=== PATIENT | female | born 1945 | race Caucasian/White ===

== ENCOUNTER 2020-12-12 08:41 | Emergency (ER) | payer OTHER, SELFPAY ==
[2020-12-12] VITALS (22 sets, daily range): BP systolic 142–189; BP diastolic 59–84; PULSE 47–66; RESP 13–24; TEMP 36.7–37.4; O2SAT 95–99
--- NOTE | 2020-12-12 08:30 | RT.EKG_ITS ---
APPROVED REPORT Exam: Resting ECG Reason for Exam: dizziness Patient Location: E HR:55 bpm ECG Measurements Heart Rate 55 AXIS MO 182 P -20 QRSd 94 QRS 28 QT 478 T 50 QTc 458 Conclusion Sinus bradycardia...rate< 60 Consider left ventricular hypertrophy...(S V1+R V5/V6) >3.25mV
--- NOTE | 2020-12-12 09:00 | DI.CT_ITS ---
Exam(s) CT BRAIN NECK CTA EXAM: CT BRAIN NECK CTA CLINICAL HISTORY: dizziness acute onset this am when awoke. TECHNIQUE: Imaging Protocol: Axial CT angiography was performed with multi-slice acquisition and mu lti-planar and/or 3D reconstructions. CONTRAST MATERIAL: Intravenous: Omnipaque 350 Contrast volume:85 mL COMPARISON: No exams were available for comparison FINDINGS: CT Head W/O and W: Ventricles and Extra axial spaces: Normal in size and morphology for the patient's age. Hemorrhage: None. Cerebral parenchyma: No acute territorial infarct. There are areas of decreased attenuation in the w mable matter most consistent with chronic microvascular ischemic disease. Midline shift: None. Brainstem/Cerebellum: Normal. Calvarium: Normal. Visualized Paranasal sinuses/Mastoids: Clear. Soft Tissues: Unremarkable. Enhancement: Unremarkable. CTA Neck W: Common Carotid: Right: No dissection, occlusion or significant stenosis. Mild atherosclerosis distally. Left: No dissection, occlusion or significant stenosis. Mild atherosclerosis distally. External Carotid: Right: No occlusion or significant stenosis. Left: No occlusion or significant stenosis. Internal Carotid: Right: No dissection, occlusion or significant stenosis. Left: No dissection, occlusion or significant stenosis. Vertebral Artery: Right: No dissection, occlusion or significant stenosis. Left: No dissection, occlusion or significant stenosis. There is a dominant left vertebral artery. Lung Apices: Normal. Bones: Age-appropriate degenerative changes. Soft Tissues: Normal. CTA Brain W: Internal Carotid Arteries: Petrous: Normal. Cavernous: Normal. Cerebral: Normal. Anterior Cerebral Arteries: Right: No aneurysm, occlusion or significant stenosis. Left: No aneurysm, occlusion or significant stenosis. Middle Cerebral Arteries: Right: No aneurysm, occlusion or significant stenosis. Left: No aneurysm, occlusion or significant stenosis. Posterior cerebral Arteries: Right: No aneurysm, occlusion or significant stenosis. Left: No aneurysm, occlusion or significant stenosis. Vertebral Arteries: Right: No aneurysm, occlusion or significant stenosis. Left: No aneurysm, occlusion or significant stenosis. Basilar Artery: No aneurysm, occlusion or significant stenosis. IMPRESSION: 1. No large vessel occlusion or significant stenosis in the [id number]. 2. No acute intracranial process. 3. No occlusion or significant stenosis on the CT examination of the neck. 4. Results of this exam have been verbally communicated with provider. RADIATION DOSE DELIVERED: 2,057.96mGy.cm Total DLP DATA REPOSITORY: All CT scans at this facility are submitted to the National Radiology Data Registry (NRDR) Dose Index Registry (DIR) with the [employer] (ACR). RADIATION OPTIMIZATION: All CT scans at this facility use at least one of these dose optimization te chniques: automated exposure control; mA and/or kV adjustment per patient size (includes targeted exa ms where dose is matched to clinical indication); or iterative reconstruction.
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
--- OUTSIDE RECORDS SUMMARY | 2020-12-12 09:32 | XMS_ITS | Continuity of Care Document ---
:1945 Author Organization [facility] Address [address] [place] [address] Care Team Providers Name Role Phone Jayleen [...] have a copy on file here at [facility]? No N [id number] 8:29pm Does patient have an Advanced Directive? No February 13, 2017 8:29pm Pt has a Living Will? No February 13, 2017 8:29pm Pt has a Power of Counter Help? No February 13, 2017 8:29pm Chief Complaint [...] Discharge/Departure Atte nding Date Date Provider Departed [facility] February 13February 13, 2017 [facility] Department 2016 8:00pm 9:00pm Functional Status No known functional status. Immunizations Immunization Name Date Given Type Tetanus Diphtheria Pertussis February 13, 2017 Administere d Payers Payer Name Policy Type Covered Covered Relationship Subscriber Sub scriber Id Alliance Party Alliance Party Id SELF PAY Personal Plan of Care [...] 2017 8:59pm Blood Pressure Diastolic 78 50-85 [facility]2016 8:59pm Body Mass Index n/a
--- OUTSIDE RECORDS SUMMARY | 2020-12-12 09:32 | XMS_ITS | Continuity of Care Document ---
:1945 Author Organization [facility] Address [address] [place] [address] Care Team Providers Name Role Phone Jayleen [...] have a copy on file here at [facility]? No N [id number] 8:29pm Does patient have an Advanced Directive? No February 13, 2017 8:29pm Pt has a Living Will? No February 13, 2017 8:29pm Pt has a Power of Editor Managing [employer]aper? No February 13, 2017 8:29pm Chief Complaint [...] Discharge/Departure Atte nding Date Date Provider Departed [facility] February 13February 13, 2017 Emergency Medical [...] 2017 8:59pm Blood Pressure Diastolic 78 50-85 [facility]2016 8:59pm Body Mass Index n/a
[2020-12-12] MEDS: Meclizine 25 MG TAB PO (09:33)
--- OUTSIDE RECORDS SUMMARY | 2020-12-12 09:33 | XMS_ITS | Encounter Summary ---
:1945 Author Care Team Providers Name Role Phone Jayleen Nash MD Primary Care Provider [phone] [facility] OTHER [phone] Giovani Schneider MD General Surgeon [phone] Reason for Visit shortness of breath Assessment and Plan 1. Pain in left knee Likely injured lateral meniscu s of left knee. Patient reports it has worsened over some time. Starting with b aseline xrays to determine how much underlying OA she might have. Patient is going to take Aleve on a scheduled basis for the next several weeks. ? XR, knee, 3 view 2. Hand wart With the patient's request, I froze her three warts with three freeze/thaw cycles of liquid nitrogen. She tolerated without issue. Greater than 50% of this 20 minute appoi ntment was spent in counseling. Discussion Note: None recorded.Patient educational handouts: No information available. Plan of Care Reminders Provider Appointments Awv 40 05/31/2021 Jayleen Montesinos rris 2:40PM MD Charity ? Return to on or around Baudilio Ortega, Office 10/13/2021 [facility] Lab None ? ? recorded. Referral None ? ? recorded. Procedures None ? ? recorded. Surgeries None ? ? recorded. Imaging XR, Knee, 12/07/2020 [facility] (Internal) Medications Name Start Date ? ? aspirin 81 mg tablet,delayed release ? Take 1 tablet every day by oral route in the morning. Flexeril 10 mg tablet ? Take 1 tablet 3 times a day by oral route as needed. metoprolol succinate ER 50 mg tablet,extended release 24 hr ? TAKE 1 TABLET DAILY omeprazole 40 mg capsule,delayed release ? TAKE 1 CAPSULE DAILY Pepcid 20 mg tablet ? TAKE ONE TABLET BY MOUTH EVERY DAY ProAir HFA 90 mcg/actuation aerosol inhaler ? Inhale 2 puffs every 4 hours by inhalation route. Zofran ODT 4 mg disintegrating tablet ? Take 1 tablet every 6 hours by oral route as needed. Notes: pt states takes 2 capsule s tumeric 720 mg mg daily in the AM. Bio complete 3 takes 4 daily., replenex extr a strength 3 daily. Medications Administered None recorded. Vitals Height Weight BMI Blood Pressure 5 ft 3.75 in 177 lbs 30.6 kg/m2 130/88 mm[Hg] Results Lab Results None recorded. Allergies Code Code System Name Reaction Severity Onset 20231105 RxNorm Motrin ? ? ? Notes: Animal Dander, Mold spore s, Pollens Problems Name Status Onset Date Source ? 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 Goiter Active ? History Non-toxic Nodular Goiter Active ? History Non-toxic Uninodular Goiter Active ? Hist ory Hypo-osmolality and or Hyponatremia Active ? History Obesity Active ? History Overweight Active ? History Alcohol Abuse Active ? History Obstructive Sleep Apnea Syndrome Active ? History Nervous System and Sense Organ Diseases Active ? History Essential Hypertension Active ? History Benign Essential Hypertension Active ? Hi story Allergic Rhinitis Active ? History Iliopsoas Abscess Active ? History Cystitis Active ? History Hypertrichosis Active ? History Localized, Primary Osteoarthritis of Active ? History the Wrist Osteoarthritis Active ? History Joint Pain Active ? History Osteomyelitis of Vertebra Active ? Histor y Osteoporosis Active ? History Sleep Apnea Active ? History Heart Murmur Active ? History Right Upper Quadrant Pain Active ? Histor y Large Liver Active ? History Nonspecific Tuberculin Test Reaction Active ? History Mantoux: Positive Active ? History History of Disorder Active ? History Osteoarthritis of Joint Right Ankle Active ? History Procedure by Method Active ? History Pain in Left Knee Active ? History Pain of Left Hip Joint Active ? History Notes: MRSA SCREEN NEGATIVE 01/03 Procedures Date Name Performed by ? 05/30/2019 Excision of Ganglion Cyst Information no t available 05/30/2019 Colonoscopy Information not avai lable Notes: colonoscopy normal; 02/05/2009 normal exam; 01/30/1999 normal exam 03/30/1977 Hysterectomy Information not avai lable 03/30/1957 Appendectomy Information not avai lable ? Orthopedic Surgery Information not avai lable Notes: Age 20 left great toe no metal 12/07/2020 XR, Knee, [facility] [address] [place] [address] (Work Place) Vaccine List Vaccine Type COVID-19, mRNA, LNP-S, PF, 100 mcg/0.5 m L dose 05/25/2020?0.5 mL 06/21/2020?100 mcg Hep B, adult influenza, injectable, quadrivalent 01/04/2020 influenza, seasonal, injectable 01/28/2005 influenza, seasonal, injectable, preserv ative free 12/28/2008?0.5 mL 02/06/2011?0.5 mL 01/02/2012?0.5 mL novel [id number], all formulation s 12/28/2008?0.5 mL pneumococcal conjugate PCV 13 12/10/2015?0.5 mL pneumococcal polysaccharide [id number] 03/04/2013?0.5 mL Td (adult), adsorbed 03/04/2019 Tdap 08/15/2005 zoster live 06/27/2011?0.65 mL Social History Tobacco Smoking Status Former Smoker Notes: Quit 19 96. started age 18 and smoked 1 ppd What is the highest grade or level [id number] of school you have completed or the highest degree you have received? 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 N Are you blind or do you have Notes: c orrective lens difficulty seeing? Do you have smoke and carbon Y monoxide detectors in your home? What is your code status? 0 What was the date of your most 12/07/2020 recent tobacco screening? Do you have an advanced directive? Y What is your exercise level? Occasional How many years have you smoked 30 tobacco? Live alone or with others? with others Notes: jaylen mcintyreenlsy, 4 adult children What is your level of alcohol Occasional Notes: 2 drinks per night consumption? Which of your hands is dominant? Right Animal exposure? N Do you have any pets? N Have you been to an area known to N be high risk for COVID-19? Language Difficulties No Are you deaf or do you have serious N difficulty hearing? Hard of hearing or deaf in one or Y Note s: hearing deficit: right both ears? ear What is your level of caffeine Notes: unsweetened Iced Tea: consumption? 24 oz daily Have you recently traveled abroad? N What is your occupation? nurse Family History Relation Problem Onset Age of Age Notes Brother Glioblastoma (No N/A (No Notes) Information) Brother Diabetes mellitus (No N/A (No Notes) Information) Maternal Aunt Diabetes mellitus (No N/A (No Notes ) Information) Maternal Uncle Diabetes mellitus (No N/A (No Note s) Information) Father Cerebrovascular disease (No N/A (No Notes) Information) Mother Cerebrovascular disease (No N/A (No Notes) Information) Functional Status No Impairment. Past Encounters 12/07/2020 Pain in Left Knee; Hand Wart Jayleen Nash MD: [address] [place] [phone], Ph. History of Present Illness ? Shortness of Breath Reported By: Patient HPI: Quality: ; shortness of dilma th after going up the stairs, functional use of right hand has improved, but no changes in my writing. Alleviating Factors: ; has not had to us e inhaler. Associated Symptoms: no chest pain, no palpitations, no fe eliceo, no chills, no wheezing, nasal problems, decrease in exercise capacit y Note: <p>1 month f/u shortness of breath after covid</p><p>Much improved nw. </p& gt;<p>
</p><p>left knee having to wear during the day, if not wearing brace feels like my knee is going to break off</p><p>
</p><p>taking replenish for the pain , if sitting no pain, walking and stairs, aggravates.</p><p>
</p><p>Does not buckle</p><p>Does not lock</p><p>
< /p><p>skin issue on right hand pinky finger 3 areas.</p> Review of Systems ? Notes: <p>Gen: No fevers, chills, s weats. Weight loss</p><p>HEENT: Denies vision changes. Denies hearing doyle ges. Denies dysphagia. Denies odynophagia. </p><p>CV: Denies chest pain . Denies chest pressure. Denies heart palpitations.</p><p>RESP: De nies cough. Denies shortness of breath. Denies wheezing. </p><p>GI: Denies abdominal pain. Denies diarrhea. Denies constipation. Denies melena. Denies hematochezia. </p><p>: Denies urinary incontinence. Denies dysuria . </p><p>MSK: endorses left knee </p><p>Skin: endorses skin lesions.</p><p >Neuro: Denies headaches. Denies imbalance. Denies numbness and tingling in ext remities.
</p><p>Psych: Denies depression. Denies anxiety. </p> Physical Exam ? Notes: <p>Gen: Well appearing. No a pparent distress. </p><p>HEENT: EOMI, PERRLA. </p><p>CV: RRR, no murmur s, rubs, gallops.
</p><p>RESP: clear to auscultation bilaterally. no wheezes, rubs, rhonchi</p><p>ABD: nondistended</p><p>MSK: left knee with pain over lateral and medial aspects; minimal swelling and warmth; no erythema</p><p>EXT: no peripheral edema</p><p>SKIN: three wart s right pinky</p><p>Neuro: CN II- XII grossly intact. Alert and oriented x 3</p><p>Psych: Appropriate affect and mood. </p>
--- OUTSIDE RECORDS SUMMARY | 2020-12-12 09:33 | XMS_ITS ---
:1945 Author Care Team Providers Name Role Phone LESLIE RODRIGES MD General Surgeon [phone] JAYLEEN NASH MD Primary Care Provider [phone] [facility] OTHER [phone] Allergies Code Code System Name Reaction Severity Status Onset 20231105 RxNorm Motrin ? ? Active ? Notes: Animal Dander, Mold spore s, Pollens Medications Name Status Start Date Stop Date ? ? Aleve 220 mg tablet Completed ? 03/04/2019 Take 2 tablets every day by oral route. amoxicillin 500 mg capsule Completed 06/07/200408/28 1 (one) Cap: TID aspirin 81 mg tablet,delayed release Active ? Not available Take 1 tablet every day by oral route in the morning. azithromycin 250 mg tablet Completed 02/06/201102/11 2 (two) Tablet: DAY 1, THEN 1 TAB DAILY TIMES 4 DAYS. Calcium Citrate + tablet Completed 03/04/2013 015 1 (one) Tablet: daily capsicum (cayenne) 450 mg capsule Completed 05/25/2009 07/16/2012 2 (two) Capsule: daily ciprofloxacin 500 mg tablet Active ? Not available Ciprodex 0.3 %-0.1 % ear drops,suspension Completed 201101/02/2012 4 Drop(s): BID E-Z Spacer Unknown 07/31/2006 Not available 1 (one) Device: PRN flaxseed oil 1,000 mg capsule Completed 07/16/2012 2 (two) Capsule: daily Flexeril 10 mg tablet Active ? Not availa ble Take 1 tablet 3 times a day by oral route as needed. Fosamax 70 mg tablet Completed 09/03/2010 09/03/2010 1 (one) Tablet: Weekly Glucosamine-Chondroitin Complex capsule Completed 07/17/19 13 07/16/2012 3 (three) Capsule: daily indomethacin 25 mg capsule Completed 06/03/200606/08 1 Capsule: Q 8 hr with food Levaquin 500 mg tablet Completed 07/19/2004 5 1 (one) Tablet: Daily lidocaine-prilocaine 2.5 %-2.5 % Completed ? 09/24/2017 topical cream metoprolol succinate ER 50 mg Active ? No t available tablet,extended release 24 hr naltrexone 50 mg tablet Completed ? 09/10/19 20 neomycin 1.75 mg-polymyxin 10,000 Completed ? 03/04/2019 unit-gramicidin 0.025mg/mL eye drops Nuvigil 250 mg tablet Completed 02/06/2011 07/30/2016 1 Tablet: daily as needed omeprazole 20 mg capsule,delayed release Completed 05/25/2009 1 (one) Capsule DR: daily omeprazole 40 mg capsule,delayed release Active ? Not available TAKE 1 CAPSULE DAILY penicillin G pot 2 million unit/50 mL-dextrose intravenous p iggyback Completed 07/24/2016 08/23/2016 100 Milliliter: every 4 hours penicillin V potassium 250 mg Active ? No t available tablet penicillin V potassium 500 mg Completed ? tablet Pepcid 20 mg tablet Active ? Not availabl e Percocet 5 mg-325 mg tablet Completed 02/02/201503/30 1-2 Tablet: every four to six hours as needed potassium chloride ER 10 mEq capsule,extended release Completed 07/11/2016 07/30/2016 1 (one) Capsule ER: two times daily prednisolone acetate 1 % eye Completed ? 08/2018 drops,suspension Premarin 0.625 mg tablet Completed 06/20/2004 005 1 (one) Tablet: Daily ProAir HFA 90 mcg/actuation aerosol inhaler Active ? Not available Inhale 2 puffs every 4 hours by inhalation route. sulfamethoxazole 800 mg-trimethoprim 160 mg tablet Completed ? 04/20/2020 TAKE ONE TABLET BY MOUTH EVERY 12 HOURS FOR 5 DAYS Toprol XL 25 mg tablet,extended release Completed 06/21/19 05 08/28/2004 1 (one) Tab SR 24HR: Daily triamcinolone acetonide 0.1 % Completed ? topical cream Ultram 50 mg tablet Completed 07/14/2005 12/30/2005 1-2 Tablet: Q 4hr/PRN pain vitamin B complex tablet Completed 07/16/2012 013 2 (two) Tablet: daily Xopenex HFA 45 mcg/actuation aerosol inhaler Completed 07/201101/02/2012 2 (two) Puff(s): four times daily, as needed Zantac 150 mg tablet Completed 11/03/2008 11/03/2008 1 (one) Tablet: daily Zofran ODT 4 mg disintegrating tablet Active ? Not available Take 1 tablet every 6 hours by oral route as needed. Notes: pt states takes 2 capsule s tumeric 720 mg mg daily in the AM. Bio complete 3 takes 4 daily., replenex extr a strength 3 daily. Problems Name Status Onset Date Source ? 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 Goiter Active ? History Non-toxic Nodular Goiter Active ? History Non-toxic Uninodular Goiter Active ? Hist ory Hypo-osmolality and or Hyponatremia Active ? History Obesity Active ? History Overweight Active ? History Alcohol Abuse Active ? History Obstructive Sleep Apnea Syndrome Active ? History Nervous System and Sense Organ Active ? H istory Diseases Essential Hypertension Active ? History Benign Essential [...] History History of Disorder Active ? History Adult Health Examination Unknown ? History Screening Mammography Unknown ? History Osteoarthritis of Joint Right Ankle Active ? History Procedure by Method Active ? History Abscess of Trunk Unknown ? History Finding of Esophagus Unknown ? History Inflammatory Disorder of Digestive Unknown ? History Tract Pain in Left Knee Active ? History Disorder of Lower Respiratory System Unknown ? History Pain of Left Hip Joint [...] Age 20 left great toe no metal 02/15/2018 MAMMO, Screening, Tomosynthesis, [facility] (Internal) Bilateral [address] [place] [address] (Work Place) 03/04/2019 MAMMO, Screening, Tomosynthesis, [facility] (Internal) Bilateral [address] [place] [address] (Work Place) 04/20/2020 MAMMO, Screening, Tomosynthesis, [facility] (Internal) Bilateral [address] [place] [address] (Work Place) 12/07/2020 XR[facility] [address] [facility] [address] [place] [address] (Work Place) Results Lab Results Date Name Specimen Result Interpretation Description Value Range Status Address ? 04/19/2020 CBC W/ BLD ? Wbc 7.5 10*3/uL 5.0-10.0 Final [place] Auto Diff 10*3/uL [facility] L ab (Internal) : [address] ? ? BLD ? Rbc 4.34 10*6/uL 4.10-5.30 Final N orth 10*6/uL [facility] L ab (Internal) : [address] ? ? BLD ? Hgb 14.0 g/dL 12.0-16.0 Final Nort h g/dL [facility] L ab (Internal) : [address] ? ? BLD ? Hct 43.1 % 37.0-47.0 % Final [facility] L ab (Internal) : [address] ? ? BLD High Mcv 99.3 fL 80.0-96.0 Final [facility] L ab (Internal) : [address] ? ? BLD High Mch 32.3 pg 26.0-32.0 Final [facility] L ab (Internal) : [address] ? ? BLD ? Mchc 32.5 g/dL 31.0-35.0 [facility] L ab (Internal) : [address] ? ? BLD High Rdw 15.2 % 11.5-14.5 % Final [facility] ab (Internal) : [address] ? ? BLD ? Plt 213 10*3/uL 130-450 Final [facility] 10*3/uL [facility] L ab (Internal) : [address] ? ? BLD ? Anc 4.74 10*3/uL ? Final [facility] L ab (Internal) : [address] ? ? BLD ? Nlr 2.71 0.00-3.[address] [facility] ab (Internal) : [address] ? ? BLD ? Neutro 63.3 % 40.0-75.0 % Final [facility] ab (Internal) : [address] ? ? BLD ? Lymph 23.4 % 20.0-50.0 % Final [facility] L ab (Internal) : [address] ? ? BLD ? [place] 8.9 % 2.0-10.0 % Final [facility] ab (Internal) : [address] ? ? BLD ? Eos 3.2 % 1.0-6.0 % Final [facility] L ab (Internal) : [address] ? ? BLD ? Baso 0.9 % 0.0-1.0 % Final [facility] L ab (Internal) : [address] ? ? BLD ? Ig 0.3 % 0.0-0.9 % Final [facility] L ab (Internal) : [address] 04/19/2020 CMP, Serum S ? g/r 98 mg/dL 74-106 Final North or Plasma mg/dL [facility] L ab (Internal) : [address] ? ? S High Bun 19 mg/dL 7-17 mg/dL Final [facility] L ab (Internal) : [address] ? ? S ? Crea 0.90 mg/dL 0.52-1.04 Final Nor th mg/dL [facility] (Internal[facility] : [address] ? ? S ? Ca 9.3 mg/dL 8.4-10.2 Final [facility] mg/dL [facility] (Internal[facility] : [address] ? ? S ? Na 140 mmol/L 137-145 Final [facility] mmol/L [facility] (Internal) : [address] ? ? S ? K 4.0 mmol/L 3.5-5.1 Final [facility] mmol/L [facility] (Internal) : [address] ? ? S High Cl 108 mmol/L 98-107 Final [facility] mmol/L [facility] (Internal) : [address] ? ? S ? Tco2 23.0 mmol/L 22.0-30.0 Final No rth mmol/L [facility] L ab (Internal) : [address] ? ? S ? Tp 7.7 g/dL 6.3-8.2 Final [facility] g/dL [facility] (Internal) : [address] ? ? S ? Alb 4.1 g/dL 3.5-5.0 Final [facility] g/dL [facility] (Internal) : [address] ? ? S ? Tbil 0.8 mg/dL 0.2-1.3 Final [facility] mg/dL [facility] L ab (Internal) : [address] ? ? S ? Alp 75 U/L 38-126 U/L Final [facility] L ab (Internal) : [address] ? ? S ? Alt 17 U/L 9-52 U/L Final [place] (Sgpt) [facility] Hospital L ab (Internal) : [address] ? ? S ? Ast 28 U/L 14-36 U/L Final [place] (Sgot) [facility] Hospital L ab (Internal) : [address] t 04/19/2020 Lipid S High Chol 226 mg/dL 50-200 Final Nor th Panel, mg/dL [facility] L ab (Internal) : [address] ? ? S ? Trig 149 mg/dL 10-150 Final [place] mg/dL [facility] Hospital L ab (Internal) : [address] ? ? S High Hdl 76 mg/dL 40-60 mg/dL Final [facility] Hospital L ab (Internal) : [address] ? ? S ? Ldl 120 mg/dL 0-130 mg/dL Final No rth [facility] L ab (Internal) : [address] 04/19/2020 HbA1C BLD ? Ha1C 5.4 % 4.0-6.0 % Final [facility] (Hemoglobi Countr y n a1C), Hospital Lab Blood (Internal) : [address] 04/19/2020 RBC BLD ? Aniso rare ? Final [place] Morphology Countr y , Blood Hospital Lab (Internal) : [address] 03/11/2020 Urinalysis UR ? UA-colo yellow pale yellow Fi nal [place] , r [facility] Dipstick, Hospita l Lab Reflex (Internal) : Micro [address] ? ? UR ABNORMA UA-appe hazy clear Final [facility] L ab (Internal) : [address] ? ? UR ? UA-spec 1.010 1.003-1.035 Final [facility] L ab (Internal) : [address] ? ? UR ? UA-pH 5.5 [pH] 4.6-8.0 Final [place] [pH] [facility] Hospital L ab (Internal) : [address] ? ? UR ABNORMA UA-leuk moderate negative Final Nor th L Est [facility] Hospital L ab (Internal) : [address] ? ? UR ? UA-nitr negative negative Final Nort h ite [facility] Hospital L ab (Internal) : [address] ? ? UR ? UA-prot negative negative Final Nort h [facility] Hospital L ab (Internal) : [address] ? ? UR ? UA-gluc negative negative Final Nort h [facility] Hospital L ab (Internal) : [address] ? ? UR ? UA-keto negative negative Final Nort h [facility] Hospital L ab (Internal) : [address] ? ? UR ? UA-urob normal normal Final [facility] ab (Internal) : [address] ? ? UR ? UA-bili negative negative Final Nort h [facility] ab (Internal) : [address] ? ? UR ABNORMA UA-bloo moderate negative Final Nor th L [facility] ab (Internal) : [address] 03/11/2020 Urinalysis UR ABNORMA UA-WBC 50-100 [hpf] 0-3 [hpf ] Final [facility] Lab c (Internal) : [address] ? ? UR ABNORMA UA-RBC 5-10 [hpf] 0-2 [hpf] Final N orth L [facility] ab (Internal) : [address] ? ? UR ABNORMA UA-bact many [hpf] none seen Final [facility] eria [hpf] [facility] (Internal) : [address] ? ? UR ABNORMA UA-epit few [hpf] none seen Final N [facility] helial [hpf] [facility] (Internal) : [address] ? ? UR ? UA-mucu none seen none seen Final No rth s [hpf] [hpf] [facility] (Internal) : [address] 03/11/2020 Culture UR ? Final microbiology ? Final [place] (Christmas results Country Count), Hospital Lab Urine (Internal) : [address] 02/22/2020 SARS CoV 2 SWAB ? Sars-co nasopharynx ? Fi nal [place] RNA v-2 [facility] (COVID-19) Specimen Hosp ital Lab , , Source (Internal) : out of school hours care worker-PCR, [address] Specimen ? ? SWAB ? Patient unknown ? Final [place] Race [facility] (Internal) : [address] ? ? SWAB ? Patient unknown ? Final [facility] (Internal) : [address] ? ? SWAB ? Sars-co detected undetected Final No rth v-[address] [facility] (Internal) : [address] ? ? SWAB ? Method see below ? Final [facility] L ab (Internal) : [address] 03/21/2019 CBC W/ BLD - Wbc 8.3 10*3/uL 5.0-10.0 Final [place] Auto Diff 10*3/uL [facility] Hospital L ab (Internal) : [address] ? ? BLD - Rbc 4.19 10*6/uL 4.10-5.30 Final N orth 10*6/uL [facility] Hospital L ab (Internal) : [address] ? ? BLD - Hgb 13.1 g/dL 12.0-16.0 Final Nort h g/dL [facility] L ab (Internal) : [address] ? ? BLD - Hct 39.7 % 37.0-47.0 % Final [facility] ab (Internal) : [address] ? ? BLD - Mcv 94.7 fL 80.0-96.0 Final [facility] L ab (Internal) : [address] ? ? BLD - Mch 31.3 pg 26.0-32.0 Final [facility] L ab (Internal) : [address] ? ? BLD - Mchc 33.0 g/dL 31.0-35.0 Final Nort h g/dL [facility] L ab (Internal) : [address] ? ? BLD - Rdw 13.1 % 11.5-14.5 % Final [facility] L ab (Internal) : [address] ? ? BLD - Plt 244 10*3/uL 130-450 Final Nort h 10*3/uL [facility] L ab (Internal) : [address] ? ? BLD - Anc 4.79 10*3/uL ? Final Nort [facility] L ab (Internal) : [address], [place] t ? ? BLD - Neutro 57.5 % 40.0-75.0 % Final Nort h [facility] L ab (Internal) : [address] ? ? BLD - Lymph 28.4 % 20.0-50.0 % Final [facility] L ab (Internal) : [address] ? ? BLD High [place] 10.4 % 2.0-10.0 % Final [facility] Hospital L ab (Internal) : [address] ? ? BLD - Eos 2.9 % 1.0-6.0 % Final [facility] Hospital L ab (Internal) : [address] ? ? BLD - Baso 0.6 % 0.0-1.0 % Final [facility] Hospital L ab (Internal) : [address] ? ? BLD - Ig 0.2 % 0.0-0.9 % Final [facility] Hospital L ab (Internal) : [address] t 03/21/2019 CMP, Serum S - g/r 98 mg/dL 74-106 Final [place] or Plasma mg/dL [facility] Hospital L ab (Internal) : [address] ? ? S - Bun 14 mg/dL 7-17 mg/dL Final Nort h [facility] Hospital L ab (Internal) : [address] ? ? S - Crea 1.00 mg/dL 0.52-1.04 Final Nor th mg/dL [facility] (Internal) : [address] ? ? S - Ca 9.2 mg/dL 8.4-10.2 Final [facility] mg/dL [facility] Hospital L ab (Internal) : [address] ? ? S - Na 139 mmol/L 137-145 Final [facility] mmol/L [facility] Hospital L ab (Internal) : [address] ? ? S - K 3.8 mmol/L 3.5-5.1 Final [place] mmol/L [facility] Hospital L ab (Internal) : [address] ? ? S High Cl 108 mmol/L 98-107 Final [place] mmol/L [facility] Hospital L ab (Internal) : [address] ? ? S - Tco2 23.0 mmol/L 22.0-30.0 Final No rth mmol/L [facility] Hospital L ab (Internal) : [address] ? ? S - Tp 7.4 g/dL 6.3-8.2 Final [place] g/dL [facility] Hospital L ab (Internal) : [address] ? ? S - Alb 3.8 g/dL 3.5-5.0 Final [place] g/dL [facility] Hospital L ab (Internal) : [address] ? ? S - Tbil 0.7 mg/dL 0.2-1.3 Final [place] mg/dL [facility] L ab (Internal) : [address] ? ? S - Alp 81 U/L 38-126 U/L Final [facility] L ab (Internal) : [address] ? ? S - Alt 14 U/L 9-52 U/L Final [place] (Sgpt) [facility] L ab (Internal) : [address] ? ? S - Ast 24 U/L 14-36 U/L Final [place] (Sgot) [facility] L ab (Internal) : [address] t 03/21/2019 Lipid S - Chol 200 mg/dL 50-200 Final [facility] Panel, mg/dL [facility] Serum Hospital L ab (Internal) : [address] ? ? S - Trig 122 mg/dL 10-150 Final [place] mg/dL [facility] L ab (Internal) : [address] ? ? S High Hdl 67 mg/dL 40-60 mg/dL Final Nor [facility] L ab (Internal) : [address] ? ? S - Ldl 109 mg/dL 0-130 mg/dL Final No rth [facility] L ab (Internal) : [address] t 03/21/2019 HbA1C BLD - Ha1C 5.8 % 4.0-6.0 % Final Nor (Hemoglobi Countr y n a1C), Hospital Lab Blood (Internal) : [address] t 12/31/2018 Methicilli NASAL - Final microbiology ? Fin al [place] n results [facility] Lab Staphyloco (Inter nal): ccus [address], [place] Culture, Nasal 04/02/2018 CBC W/ BLD - Wbc 8.4 10*3/uL 5.0-10.0 Final [place] Auto Diff 10*3/uL [facility] Hospital L ab (Internal) : [address] ? ? BLD - Rbc 4.18 10*6/uL 4.10-5.30 Final N orth 10*6/uL [facility] Hospital L ab (Internal) : [address] ? ? BLD - Hgb 13.7 g/dL 12.0-16.0 Final Nort h g/dL [facility] L ab (Internal) : [address] ? ? BLD - Hct 41.2 % 37.0-47.0 % Final [facility] L ab (Internal) : [address] ? ? BLD High Mcv 98.6 fL 80.0-96.0 Final [facility] L ab (Internal) : [address] ? ? BLD High Mch 32.8 pg 26.0-32.0 Final [facility] L ab (Internal) : [address] ? ? BLD - Mchc 33.3 g/dL 31.0-35.0 Final Nort h g/dL [facility] L ab (Internal) : [address] ? ? BLD - Rdw 13.2 % 11.5-14.5 % Final [facility] L ab (Internal) : [address] ? ? BLD - Plt 236 10*3/uL 130-450 Final Nort h 10*3/uL [facility] L ab (Internal) : [address] ? ? BLD - Anc 4.66 10*3/uL ? Final Nort h [facility] L ab (Internal) : [address] ? ? BLD - Neutro 55.5 % 40.0-75.0 % Final Nort h [facility] Hospital L ab (Internal) : [address] ? ? BLD - Lymph 29.8 % 20.0-50.0 % Final [facility] L ab (Internal) : [address] ? ? BLD High [place] 11.4 % 2.0-10.0 % Final [facility] L ab (Internal) : [address] ? ? BLD - Eos 2.4 % 1.0-6.0 % Final [facility] (Internal) : [address] ? ? BLD - Baso 0.7 % 0.0-1.0 % Final [facility] Hospital L ab (Internal) : [address] ? ? BLD - Ig 0.2 % 0.0-0.9 % Final [facility] Hospital L ab (Internal) : [address] t 04/02/2018 Lipase, S - Lip 112 U/L 23-300 U/L Final [place] Serum or [facility] Plasma Hospital L ab (Internal) : [address] t 04/02/2018 CMP, Serum S High g/r 116 mg/dL 74-106 Final North or Plasma mg/dL [facility] Hospital L ab (Internal) : [address] ? ? S - Bun 16 mg/dL 7-17 mg/dL Final Nort h [facility] Hospital L ab (Internal) : [address] ? ? S High Crea 1.10 mg/dL 0.52-1.04 Final Nor th mg/dL [facility] Hospital L ab (Internal) : [address] ? ? S - Ca 9.3 mg/dL 8.4-10.2 Final [facility] mg/dL [facility] Hospital L ab (Internal) : [address] ? ? S - Na 141 mmol/L 137-145 Final [place] mmol/L [facility] Hospital L ab (Internal) : [address] ? ? S - K 4.4 mmol/L 3.5-5.1 Final [place] mmol/L [facility] Hospital L ab (Internal) : [address] ? ? S - Cl 105 mmol/L 98-107 Final [place] mmol/L [facility] Hospital L ab (Internal) : [address] ? ? S - Tco2 25.0 mmol/L 22.0-30.0 Final No rth mmol/L [facility] Hospital L ab (Internal) : [address] ? ? S - Tp 7.7 g/dL 6.3-8.2 Final [place] g/dL [facility] Hospital L ab (Internal) : [address] ? ? S - Alb 4.2 g/dL 3.5-5.0 Final [place] g/dL [facility] Hospital L ab (Internal) : [address] ? ? S - Tbil 0.5 mg/dL 0.2-1.3 Final [place] mg/dL [facility] Hospital L ab (Internal) : [address] ? ? S - Alp 66 U/L 38-126 U/L Final [facility] Hospital L ab (Internal) : [address] ? ? S - Alt 15 U/L 9-52 U/L Final [place] (Sgpt) [facility] Hospital L ab (Internal) : [address] ? ? S - Ast 25 U/L 14-36 U/L Final [place] (Sgot) [facility] Hospital L ab (Internal) : [address] 04/02/2018 Amylase, S - Torri 74 U/L 30-110 U/L Final [place] Serum or [facility] Hospital L ab (Internal) : [address] 03/01/2018 Culture UR - Final microbiology ? Final [place] (Christmas results Country Count), Hospital Lab Urine (Internal) : [address] 01/27/2018 Urinalysis UR - UA-colo yellow pale yellow Fi nal [place] , r [place] Dipstick, Hospita l Lab Reflex (Internal) : Micro [address] ? ? UR - UA-appe clear clear Final [facility] Hospital L ab (Internal) : [address] ? ? UR - UA-gluc negative negative Final Nort h [facility] Hospital L ab (Internal) : [address] ? ? UR - UA-bili negative negative Final Nort h [facility] Hospital L ab (Internal) : [address] ? ? UR - UA-keto negative negative Final Nort h ne [facility] Hospital L ab (Internal) : [address] ? ? UR - UA-spec 1.010 1.003-1.035 Final Nor th Grav [facility] Hospital L ab (Internal) : [address] ? ? UR - UA-bloo negative negative Final Nort h d [facility] Hospital L ab (Internal) : [address], [place] ? ? UR - UA-pH 7.0 [pH] 4.6-8.0 Final [place] [pH] [facility] ab (Internal) : [address] ? ? UR - UA-prot negative negative Final Nort h [facility] ab (Internal) : [address] ? ? UR - UA-urob normal normal Final [facility] ab (Internal) : [address] ? ? UR - UA-nitr negative negative Final Nort h ite [facility] ab (Internal) : [address] ? ? UR ABNORMA UA-leuk small negative Final [facility] ab (Internal) : [address] 01/27/2018 Culture UR - Final microbiology ? Final [place] (Christmas results [facility]), Hospital Lab Urine (Internal) : [address] 01/27/2018 Urinalysis UR - UA-WBC 0-3 [hpf] 0-3 [hpf] [facility] Microsc[facility] Hospit al Lab c (Internal) : [address] ? ? UR - UA-RBC 0-2 [hpf] 0-2 [hpf] Final Nor th [facility] ab (Internal) : [address] t ? ? UR - UA-bact none seen none seen Final No rth eria [hpf] [hpf] [facility] (Internal) : [address] t ? ? UR - UA-epit rare [hpf] none seen Final N orth helial [hpf] [facility] (Internal) : [address] t ? ? UR - UA-mucu none seen none seen Final No rth s [hpf] [hpf] [facility] (Internal) : [address] 01/19/2018 Urinalysis ? No ? ? ? P_ nc Primary , observat Care Dipstick, ion [place] : 186 Reflex recorded Medical Micro . [facility] 01/18/2018 Urinalysis UR - UA-colo yellow pale yellow Fi nal [place] , r [facility] Dipstick, Hospita l Lab Reflex (Internal) : Micro [address] t ? ? UR - UA-appe clear clear Final [facility] L ab (Internal) : [address] t ? ? UR - UA-gluc negative negative Final Nort h [facility] L ab (Internal) : [address] t ? ? UR - UA-bili negative negative Final Nort h [facility] ab (Internal) : [address] t ? ? UR - UA-keto negative negative Final Nort h ne [facility] ab (Internal) : [address] t ? ? UR - UA-spec 1.015 1.003-1.035 Final Nor th Grav [facility] L ab (Internal) : [address] t ? ? UR - UA-bloo negative negative Final Nort h d [facility] ab (Internal) : [address] t ? ? UR - UA-pH 5.5 [pH] 4.6-8.0 Final [place] [pH] [facility] (Internal) : [address] t ? ? UR - UA-prot negative negative Final Nort h [facility] ab (Internal) : [address] t ? ? UR - UA-urob normal normal Final [facility] L ab (Internal) : [address] t ? ? UR - UA-nitr negative negative Final Nort h ite [facility] ab (Internal) : [address] t ? ? UR ABNORMA UA-leuk small negative Final [facility] ab (Internal) : [address] 01/18/2018 Urinalysis UR - UA-WBC 0-3 [hpf] 0-3 [hpf] Fi nal [facility] Lab c (Internal) : [address] t ? ? UR - UA-RBC 0-2 [hpf] 0-2 [hpf] Final [facility] L ab (Internal) : [address] t ? ? UR - UA-bact rare [hpf] none seen Final N orth eria [hpf] [facility] ab (Internal) : [address] t ? ? UR - UA-epit rare [hpf] none seen Final N orth helial [hpf] [facility] [address] ? ? UR ABNORMA UA-mucu rare [hpf] none seen Final [facility] [hpf[facility] (Internal[facility] : [address] ? ? UR - Hyaline rare [hpf] ? Final Nort h C [facility] L ab (Internal) : [address] 07/10/2017 Venipunctu BLD ? Venpn* ? ? Final N orth re [facility] ab (Internal) : [address] 07/10/2017 Folate, S ? Folate 5.49 NG/mL 2.76-20.00 Fin al [facility] Serum NG/mL [facility] ab (Internal) : [address] 07/10/2017 Vitamin S ? Vit B12 467.0 pg/mL 239.0-931.0 Final [place] B12, Serum pg/mL [facility] (Internal) : [address] 07/10/2017 CMP, Serum S ? g/r 95 mg/dL 74-106 Final [place] or Plasma mg/dL [facility] ab (Internal) : [address] t ? ? S High Bun 20 mg/dL 7-17 mg/dL Final Nort h [facility] ab (Internal) : [address] t ? ? S High Crea 1.20 mg/dL 0.52-1.04 Final Nor th mg/dL [facility] ab (Internal) : [address] t ? ? S ? Ca 9.5 mg/dL 8.4-10.2 Final [place] mg/dL [facility] ab (Internal) : [address] t ? ? S ? Na 140 mmol/L 137-145 Final [facility] mmol/L [facility] ab (Internal) : [address] t ? ? S ? K 3.8 mmol/L 3.5-5.1 Final [facility] mmol/L [facility] ab (Internal) : [address] t ? ? S ? Cl 105 mmol/L 98-107 Final [place] mmol/L [facility] ab (Internal) : [address] t ? ? S ? Tco2 23.0 mmol/L 22.0-30.0 Final No rth mmol/L [facility] ab (Internal) : [address] t ? ? S ? Tp 7.6 g/dL 6.3-8.2 Final [place] g/dL [facility] ab (Internal) : [address] ? ? S ? Alb 4.2 g/dL 3.5-5.0 Final [place] g/dL [facility] (Internal) : [address] ? ? S ? Tbil 0.4 mg/dL 0.2-1.3 Final [place] mg/dL [facility] (Internal) : [address] t ? ? S ? Alp 69 U/L 38-126 U/L Final [facility] L ab (Internal) : [address] ? ? S ? Alt 30 U/L 9-52 U/L Final [place] (pt) [facility] (Internal) : [address] t ? ? S ? Ast 25 U/L 14-36 U/L Final [place] (ot) [facility] (Internal) : [address] 07/10/2017 CBC W/ BLD ? Wbc 8.0 10*3/uL 5.0-10.0 Final [place] Auto Diff 10*3/uL [facility] L ab (Internal) : [address] t ? ? BLD ? Rbc 4.65 10*6/uL 4.10-5.30 Final N orth 10*6/uL [facility] (Internal) : [address] ? ? BLD ? Hgb 14.5 g/dL 12.0-16.0 Final Nort h g/dL [facility] (Internal) : [address] ? ? BLD ? Hct 44.0 % 37.0-47.0 % Final [facility] L ab (Internal) : [address] ? ? BLD ? Mcv 94.6 fL 80.0-96.0 Final [facility] (Internal) : [address] ? ? BLD ? Mch 31.2 pg 26.0-32.0 Final [facility] L ab (Internal) : [address] ? ? BLD ? Mchc 33.0 g/dL 31.0-35.0 Final [facility] g/dL [facility] (Internal) : [address] [place] ? ? BLD ? Rdw 11.9 % 11.5-14.5 % Final [facility] L ab (Internal) : [address] ? ? BLD ? Plt 222 10*3/uL 130-450 Final [facility] (Internal) : [address] [place] ? ? BLD ? Anc 4.41 10*3/uL ? Final [facility] L ab (Internal) : [address] ? ? BLD ? Neutro 55.1 % 40.0-75.0 % Final [facility] L ab (Internal) : [address] ? ? BLD ? Lymph 30.6 % 20.0-50.0 % Final [facility] L ab (Internal) : [address] ? ? BLD High [place] 10.4 % 2.0-10.0 % Final [facility] L ab (Internal) : [address] ? ? BLD ? Eos 2.7 % 1.0-6.0 % Final [facility] L ab (Internal) : [address] ? ? BLD ? Baso 1.0 % 0.0-1.0 % Final [facility] L ab (Internal) : [address] ? ? BLD ? Ig 0.2 % 0.0-0.9 % Final [facility] L ab (Internal) : [address] 07/10/2017 Methylmalo S ? Methylm 0.30 nmol/mL <=0.40 F inal [place] zana, QN, alonic nmol/mL Countr y Serum or Acid, Hospital Lab Plasma Qn, S (Internal) : [address] 04/10/2017 Venipunctu BLD ? Venpn* ? ? Final N orth re [facility] (Internal) : [address] 04/10/2017 CBC W/ BLD ? Wbc 8.9 10*3/uL 5.0-10.0 Final [place] Auto Diff 10*3/uL [facility] L ab (Internal) : [address] ? ? BLD Low Rbc 3.97 10*6/uL 4.10-5.30 Final N orth 10*6/uL [facility] (Internal) : [address] ? ? BLD ? Hgb 13.1 g/dL 12.0-16.0 Final Nort h g/dL [facility] (Internal) : [address] ? ? BLD ? Hct 39.7 % 37.0-47.0 % Final [facility] L ab (Internal) : [address] ? ? BLD High Mcv 100.0 fL 80.0-96.0 Final [facility] (Internal) : [address] ? ? BLD High Mch 33.0 pg 26.0-32.0 Final [facility] L ab (Internal) : [address] ? ? BLD ? Mchc 33.0 g/dL 31.0-35.0 Final Nort h g/dL [facility] (Internal) : [address] ? ? BLD ? Rdw 12.5 % 11.5-14.5 % Final [facility] L ab (Internal) : [address] ? ? BLD ? Plt 218 10*3/uL 130-450 Final Nort h 10*3/uL [facility] (Internal) : [address] ? ? BLD ? Anc 5.11 10*3/uL ? Final Nort [facility] L ab (Internal) : [address] ? ? BLD ? Neutro 57.3 % 40.0-75.0 % Final Nort h [facility] ab (Internal) : [address] ? ? BLD ? Lymph 29.7 % 20.0-50.0 % Final [facility] ab (Internal) : [address] ? ? BLD ? [place] 9.4 % 2.0-10.0 % Final [facility] L ab (Internal) : [address] ? ? BLD ? Eos 2.1 % 1.0-6.0 % Final [facility] L ab (Internal) : [address] ? ? BLD ? Baso 0.7 % 0.0-1.0 % Final [facility] L ab (Internal) : [address] ? ? BLD ? Ig 0.8 % 0.0-0.9 % Final [facility] L ab (Internal) : [address] 04/10/2017 ESR BLD ? Esr 28 mm/h 0-30 mm/h Final No rth (Erythrocy Countr y Hospital L ab Sedimentat (Inter nal): ion Rate), [address] 04/10/2017 CMP, Serum S High g/r 110 mg/dL 74-106 Final [place] or Plasma mg/dL [facility] (Internal) : [address] t ? ? S High Bun 20 mg/dL 7-17 mg/dL Final Nort [facility] (Internal) : [address] t ? ? S High Crea 1.10 mg/dL 0.52-1.04 Final Nor th mg/dL [facility] L ab (Internal) : [address] t ? ? S ? Ca 9.4 mg/dL 8.4-10.2 Final [place] mg/dL [facility] (Internal) : [address] t ? ? S ? Na 139 mmol/L 137-145 Final [place] mmol/L [facility] (Internal) : [address] ? ? S ? K 3.9 mmol/L 3.5-5.1 Final [place] mmol/L [facility] ab (Internal) : [address] t ? ? S ? Cl 105 mmol/L 98-107 Final [place] mmol/L [facility] (Internal) : [address] ? ? S ? Tco2 25.0 mmol/L 22.0-30.0 Final No rth mmol/L [facility] (Internal) : [address] t ? ? S ? Tp 7.3 g/dL 6.3-8.2 Final [facility] g/dL [facility] (Internal) : [address] t ? ? S ? Alb 4.0 g/dL 3.5-5.0 Final [facility] g/dL [facility] (Internal) : [address] t ? ? S ? Tbil 0.3 mg/dL 0.2-1.3 Final [place] mg/dL [facility] ab (Internal) : [address] t ? ? S ? Alp 76 U/L 38-126 U/L Final [facility] L ab (Internal) : [address] t ? ? S ? Alt 32 U/L 9-52 U/L Final [place] (Sgpt) [facility] ab (Internal) : [address] t ? ? S ? Ast 25 U/L 14-36 U/L Final [place] (Sgot) [facility] (Internal) : [address] t 08/25/2016 CMP, Serum S ? g/r 94 mg/dL 74-106 Final [facility] or Plasma mg/dL [facility] (Internal) : [address] t ? ? S ? Bun 15 mg/dL 7-17 mg/dL Final Nort h [facility] ab (Internal) : [address] t ? ? S ? Crea 1.00 mg/dL 0.52-1.04 Final Nor th mg/dL [facility] (Internal) : [address] t ? ? S ? Ca 9.6 mg/dL 8.4-10.2 Final [facility] mg/dL [facility] (Internal) : [address] t ? ? S ? Na 139 mmol/L 137-145 Final [place] mmol/L [facility] ab (Internal) : [address] t ? ? S ? K 4.3 mmol/L 3.5-5.1 Final [place] mmol/L [facility] ab (Internal) : [address] t ? ? S High Cl 108 mmol/L 98-107 Final [facility] mmol/L [facility] (Internal) : [address] ? ? S ? Tco2 23.0 mmol/L 22.0-30.0 Final No rth mmol/L [facility] (Internal) : [address] t ? ? S ? Tp 7.8 g/dL 6.3-8.2 Final [place] g/dL [facility] (Internal) : [address] t ? ? S ? Alb 4.2 g/dL 3.5-5.0 Final [place] g/dL [facility] (Internal) : [address] ? ? S ? Tbil 0.7 mg/dL 0.2-1.3 Final [place] mg/dL [facility] (Internal) : [address] ? ? S ? Alp 86 U/L 38-126 U/L Final [facility] L ab (Internal) : [address] t ? ? S ? Alt 28 U/L 9-52 U/L Final [place] (Sgpt) [facility] (Internal) : [address] t ? ? S ? Ast 28 U/L 14-36 U/L Final [place] (Sgot) [facility] (Internal) : [address] t 08/25/2016 ESR BLD High Esr 35 mm/h 0-30 mm/h Final No rth (Erythrocy Countr y [facility] ab Sedimentat (Inter nal): ion Rate), [address] 08/25/2016 CBC W/ BLD ? Wbc 7.7 10*3/uL 5.0-10.0 Final [place] Auto Diff 10*3/uL [facility] L ab (Internal) : [address] ? ? BLD Low Rbc 3.98 10*6/uL 4.10-5.30 Final N orth 10*6/uL [facility] (Internal) : [address] ? ? BLD ? Hgb 12.8 g/dL 12.0-16.0 Final Nort h g/dL [facility] (Internal) : [address] ? ? BLD ? Hct 38.2 % 37.0-47.0 % Final [facility] L ab (Internal) : [address] ? ? BLD ? Mcv 96.0 fL 80.0-96.[address] [facility] L ab (Internal) : [address] ? ? BLD High Mch 32.2 pg 26.0-32.0 Final [facility] Hospital L ab (Internal) : [address] ? ? BLD ? Mchc 33.5 g/dL 31.0-35.0 Final [facility] ab (Internal) : [address] ? ? BLD ? Rdw 14.2 % 11.5-14.5 % Final [facility] L ab (Internal) : [address] ? ? BLD ? Plt 228 10*3/uL 130-450 Final [facility] 10*3/uL [facility] L ab (Internal) : [address] ? ? BLD ? Anc 4.56 10*3/uL ? Final [facility] L ab (Internal) : [address] ? ? BLD ? Neutro 59.3 % 40.0-75.0 % Final [facility] L ab (Internal) : [address] ? ? BLD ? Lymph 25.3 % 20.0-50.0 % Final [facility] L ab (Internal) : [address] ? ? BLD ? [place] 9.5 % 2.0-10.0 % Final [facility] L ab (Internal) : [address] ? ? BLD ? Eos 4.7 % 1.0-6.0 % Final [facility] L ab (Internal) : [address] ? ? BLD ? Baso 0.8 % 0.0-1.0 % Final [facility] L ab (Internal) : [address] ? ? BLD ? Ig 0.4 % 0.0-0.9 % Final [facility] L ab (Internal) : [address] 08/11/2016 CMP, Serum S ? g/r 93 mg/dL 74-106 Final [facility] or Plasma mg/dL [facility] (Internal[facility] : [address] t ? ? S ? Bun 14 mg/dL 7-17 mg/dL Final Nort [facility] (Internal) : [address] ? ? S ? Crea 1.00 mg/dL 0.52-1.04 Final Nor th mg/dL [facility] (Internal) : [address] ? ? S ? Ca 9.4 mg/dL 8.4-10.2 Final [facility] mg/dL [facility] (Internal) : [address] ? ? S ? Na 139 mmol/L 137-145 Final [place] mmol/L [facility] ab (Internal) : [address] ? ? S ? K 4.3 mmol/L 3.5-5.1 Final [place] mmol/L [facility] ab (Internal) : [address] t ? ? S ? Cl 101 mmol/L 98-107 Final [place] mmol/L [facility] ab (Internal) : [address] ? ? S ? Tco2 25.0 mmol/L 22.0-30.0 Final No rth mmol/L [facility] (Internal) : [address] ? ? S ? Tp 7.7 g/dL 6.3-8.2 Final [place] g/dL [facility] ab (Internal) : [address] t ? ? S ? Alb 3.9 g/dL 3.5-5.0 Final [place] g/dL [facility] ab (Internal) : [address] t ? ? S ? Tbil 0.4 mg/dL 0.2-1.3 Final [place] mg/dL [facility] ab (Internal) : [address] ? ? S ? Alp 85 U/L 38-126 U/L Final [facility] L ab (Internal) : [address] t ? ? S ? Alt 27 U/L 9-52 U/L Final [place] (Sgpt) [facility] ab (Internal) : [address] t ? ? S ? Ast 31 U/L 14-36 U/L Final [place] (Sgot) [facility] (Internal) : [address] Papitocayden rupesh 08/11/2016 ESR BLD High Esr 61 mm/h 0-30 mm/h Final No rth (Erythrocy Countr y Hospital L ab Sedimentat (Inter nal): ion Rate), [address] 08/11/2016 CBC W/ BLD ? Wbc 8.7 10*3/uL 5.0-10.0 Final [place] Auto Diff 10*3/uL [facility] L ab (Internal) : [address] ? ? BLD Low Rbc 3.65 10*6/uL 4.10-5.30 Final N orth 10*6/uL [facility] (Internal) : [address] ? ? BLD Low Hgb 11.8 g/dL 12.0-16.0 Final Nort h g/dL [facility] (Internal) : [address] ? ? BLD Low Hct 35.2 % 37.0-47.0 % Final [facility] L ab (Internal) : [address] ? ? BLD High Mcv 96.4 fL 80.0-96.0 Final [facility] (Internal) : [address] ? ? BLD High Mch 32.3 pg 26.0-32.0 Final [facility] L ab (Internal) : [address] ? ? BLD ? Mchc 33.5 g/dL 31.0-35.0 Final Nort h g/dL [facility] (Internal) : [address] ? ? BLD ? Rdw 13.2 % 11.5-14.5 % Final [facility] L ab (Internal) : [address] ? ? BLD ? Plt 277 10*3/uL 130-450 Final Nort h 10*3/uL [facility] (Internal) : [address] ? ? BLD ? Anc 5.45 10*3/uL ? Final Nort [facility] (Internal) : [address] ? ? BLD ? Neutro 62.6 % 40.0-75.0 % Final Nort [facility] (Internal) : [address] ? ? BLD ? Lymph 22.0 % 20.0-50.0 % Final [facility] L ab (Internal) : [address] ? ? BLD ? [place] 8.9 % 2.0-10.0 % Final [facility] L ab (Internal) : [address] ? ? BLD ? Eos 5.4 % 1.0-6.0 % Final [facility] L ab (Internal) : [address] ? ? BLD ? Baso 0.8 % 0.0-1.0 % Final [facility] ab (Internal) : [address] ? ? BLD ? Ig 0.3 % 0.0-0.9 % Final [facility] ab (Internal) : [address] 08/04/2016 CBC W/ BLD ? Wbc 9.1 10*3/uL 5.0-10.0 Final [place] Auto Diff 10*3/uL [facility] L ab (Internal) : [address] ? ? BLD Low Rbc 3.62 10*6/uL 4.10-5.30 Final N orth 10*6/uL [facility] (Internal) : [address] ? ? BLD Low Hgb 11.4 g/dL 12.0-16.0 Final Nort [facility] g/dL [facility] (Internal) : [address] ? ? BLD Low Hct 35.1 % 37.0-47.0 % Final [facility] L ab (Internal) : [address] ? ? BLD High Mcv 97.0 fL 80.0-96.0 Final [facility] (Internal) : [address] ? ? BLD ? Mch 31.5 pg 26.0-32.0 Final [facility] L ab (Internal) : [address] ? ? BLD ? Mchc 32.5 g/dL 31.0-35.0 Final Nort [facility] g/dL [facility] (Internal) : [address] ? ? BLD ? Rdw 13.0 % 11.5-14.5 % Final [facility] L ab (Internal) : [address] ? ? BLD ? Plt 397 10*3/uL 130-450 Final Nort h 10*3/uL [facility] L ab (Internal) : [address] ? ? BLD ? Anc 5.66 10*3/uL ? Final [facility] L ab (Internal) : [address] ? ? BLD ? Neutro 62.4 % 40.0-75.0 % Final [facility] L ab (Internal) : [address] ? ? BLD ? Lymph 22.9 % 20.0-50.0 % Final [facility] L ab (Internal) : [address] ? ? BLD ? [place] 9.1 % 2.0-10.0 % Final [facility] L ab (Internal) : [address] ? ? BLD ? Eos 4.0 % 1.0-6.0 % Final [facility] L ab (Internal) : [address] ? ? BLD High Baso 1.2 % 0.0-1.0 % Final [facility] L ab (Internal) : [address] ? ? BLD ? Ig 0.4 % 0.0-0.9 % Final [facility] L ab (Internal) : [address] 08/04/2016 BMP, Serum S ? g/r 86 mg/dL 74-106 Final [place] or Plasma mg/dL [facility] L ab (Internal) : [address] ? ? S ? Bun 13 mg/dL 7-17 mg/dL Final [facility] L ab (Internal) : [address] ? ? S ? Crea 1.00 mg/dL 0.52-1.04 Final Nor th mg/dL [facility] L ab (Internal) : [address] ? ? S ? Ca 9.7 mg/dL 8.4-10.2 Final [facility] mg/dL [facility] (Internal) : [address] ? ? S Low Na 136 mmol/L 137-145 Final [facility] mmol/L [facility] (Internal) : [address] ? ? S ? K 4.5 mmol/L 3.5-5.1 Final [facility] mmol/L [facility] (Internal) : [address] t ? ? S ? Cl 101 mmol/L 98-107 Final [facility] mmol/L [facility] (Internal) : [address] t ? ? S ? Tco2 24.0 mmol/L 22.0-30.0 Final No rth mmol/L [facility] (Internal) : [address] 07/31/2016 Creatinine S ? Crea 1.00 mg/dL 0.52-1.04 Fi nal [place] , Serum or mg/dL Countr y [facility] Hospital L ab (Internal) : [address] 07/28/2016 BMP, Serum S High g/r 110 mg/dL 74-106 Final [facility] or Plasma mg/dL [facility] (Internal) : [address] t ? ? S ? Bun 15 mg/dL 7-17 mg/dL Final Nort [facility] (Internal) : [address] ? ? S High Crea 1.20 mg/dL 0.52-1.04 Final Nor th mg/dL [facility] (Internal) : [address] t ? ? S ? Ca 9.4 mg/dL 8.4-10.2 Final [facility] mg/dL [facility] (Internal) : [address] ? ? S ? Na 138 mmol/L 137-145 Final [facility] mmol/L [facility] (Internal) : [address] t ? ? S ? K 4.8 mmol/L 3.5-5.1 Final [facility] mmol/L [facility] (Internal) : [address] ? ? S ? Cl 99 mmol/L 98-107 Final [facility] mmol/L [facility] (Internal) : [address] t ? ? S ? Tco2 25.0 mmol/L 22.0-30.0 Final No rth mmol/L [facility] L ab (Internal) : [address] 07/28/2016 CBC W/ BLD High Wbc 12.1 10*3/uL 5.0-10.0 Final [place] Auto Diff 10*3/uL [facility] Hospital L ab (Internal) : [address] ? ? BLD Low Rbc 3.44 10*6/uL 4.10-5.30 Final N orth 10*6/uL [facility] L ab (Internal) : [address] ? ? BLD Low Hgb 10.9 g/dL 12.0-16.0 Final Nort h g/dL [facility] (Internal) : [address] ? ? BLD Low Hct 33.6 % 37.0-47.0 % Final [facility] L ab (Internal) : [address] ? ? BLD High Mcv 97.7 fL 80.0-96.0 Final [facility] (Internal) : [address] ? ? BLD ? Mch 31.7 pg 26.0-32.0 Final [facility] L ab (Internal) : [address] ? ? BLD ? Mchc 32.4 g/dL 31.0-35.0 Final Nort h g/dL [facility] (Internal) : [address] ? ? BLD ? Rdw 12.8 % 11.5-14.5 % Final [facility] L ab (Internal) : [address] ? ? BLD High Plt 456 10*3/uL 130-450 Final Nort h 10*3/uL [facility] L ab (Internal) : [address] t ? ? BLD ? Anc 8.19 10*3/uL ? Final Nort h [facility] L ab (Internal) : [address] ? ? BLD ? Neutro 67.6 % 40.0-75.0 % Final Nort h [facility] L ab (Internal) : [address] ? ? BLD ? Lymph 20.4 % 20.0-50.0 % Final [facility] ab (Internal) : [address] ? ? BLD ? [place] 6.9 % 2.0-10.0 % Final [facility] ab (Internal) : [address] ? ? BLD ? Eos 3.4 % 1.0-6.0 % Final [facility] ab (Internal) : [address] ? ? BLD ? Baso 0.7 % 0.0-1.0 % Final [facility] ab (Internal) : [address] t ? ? BLD High Ig 1.0 % 0.0-0.9 % Final [facility] ab (Internal) : [address] t 07/18/2016 Venipunctu BLD ? Venpn* ? ? Final N orth re [facility] ab (Internal) : [address] 07/18/2016 Culture, BLD ? Final microbiology ? Final [place] Blood results [facility] ab (Internal) : [address] t 07/18/2016 Culture, BLD ? Final microbiology ? Final [place] Blood [facility] ab (Internal) : [address] t 07/18/2016 Culture, UR ? Final microbiology ? Final [place] Urine results [facility] ab (Internal) : [address] 07/18/2016 TSH, Serum S ? Tsh 1.26 0.47-4.68 Final [facility] Plasma u[IU]/mL u[IU]/mL [facility] [place] [place] ab (Internal) : [address] t 07/18/2016 Neutrophil BLD ? Anc-man 16.28 ? Final [place] Count, ual 10*3/uL [facility] Lab (Anc), (Internal) : Blood [address] t 07/18/2016 Differenti BLD High Polys 79 % 40-75 % Final N orth al, [facility] Lab Blood (Internal) : [address] ? ? BLD ? Bands 0 % 0-5 % Final [facility] ab (Internal) : [address] ? ? BLD Low Lymphs 8 % 20-50 % Final [facility] L ab (Internal) : [address] t ? ? BLD High [place] 11 % 2-10 % Final [facility] L ab (Internal) : [address] t ? ? BLD ? Eos 0 % 0-6 % Final [facility] L ab (Internal) : [address] t ? ? BLD ? Baso 1 % 0-1 % Final [facility] L ab (Internal) : [address] ? ? BLD ? Atyp 1 % ? Final [facility] L ab (Internal) : [address] ? ? BLD ABNORMA Plts, elevated adequate Final [facility] Est. [facility] L ab (Internal) : [address] ? ? BLD ? RBC normal normal Final [facility] L ab (Internal) : [address] 07/18/2016 CMP, Serum S ? g/r 106 mg/dL 74-106 Final North or Plasma mg/dL [facility] L ab (Internal) : [address] ? ? S ? Bun 11 mg/dL 7-17 mg/dL Final Nort h [facility] L ab (Internal) : [address] ? ? S ? Crea 0.80 mg/dL 0.52-1.04 Final Nor th mg/dL [facility] L ab (Internal) : [address] t ? ? S ? Ca 9.1 mg/dL 8.4-10.2 Final North mg/dL [facility] L ab (Internal) : [address] ? ? S Low Na 128 mmol/L 137-145 Final [place] mmol/L [facility] L ab (Internal) : [address] t ? ? S ? K 4.8 mmol/L 3.5-5.1 Final [place] mmol/L [facility] L ab (Internal) : [address] t ? ? S Low Cl 94 mmol/L 98-107 Final [place] mmol/L [facility] L ab (Internal) : [address] t ? ? S ? Tco2 22.0 mmol/L 22.0-30.0 Final No rth mmol/L [facility] L ab (Internal) : [address] t ? ? S ? Tp 7.8 g/dL 6.3-8.2 Final [place] g/dL [facility] L ab (Internal) : [address] t ? ? S ? Alb 3.5 g/dL 3.5-5.0 Final [place] g/dL [facility] L ab (Internal) : [address] ? ? S ? Tbil 0.8 mg/dL 0.2-1.3 Final [place] mg/dL [facility] L ab (Internal) : [address] ? ? S ? Alp 104 U/L 38-126 U/L Final [facility] L ab (Internal) : [address] ? ? S ? Alt 30 U/L 9-52 U/L Final [place] (Sgpt) [facility] L ab (Internal) : [address] ? ? S ? Ast 27 U/L 14-36 U/L Final [place] (Sgot) [facility] L ab (Internal) : [address] t 07/18/2016 CBC W/ BLD High Wbc 20.6 10*3/uL 5.0-10.0 Final [place] Auto Diff 10*3/uL [facility] L ab (Internal) : [address] ? ? BLD Low Rbc 3.36 10*6/uL 4.10-5.30 Final N orth 10*6/uL [facility] ab (Internal) : [address] ? ? BLD Low Hgb 11.1 g/dL 12.0-16.0 Final Nort h g/dL [facility] L ab (Internal) : [address] ? ? BLD Low Hct 31.6 % 37.0-47.0 % Final [facility] L ab (Internal) : [address] ? ? BLD ? Mcv 94.0 fL 80.0-96.0 Final [facility] L ab (Internal) : [address] ? ? BLD High Mch 33.0 pg 26.0-32.0 Final [facility] L ab (Internal) : [address] ? ? BLD High Mchc 35.1 g/dL 31.0-35.0 Final Nort h g/dL [facility] L ab (Internal) : [address] ? ? BLD ? Rdw 12.6 % 11.5-14.5 % Final [facility] L ab (Internal) : [address] ? ? BLD High Plt 573 10*3/uL 130-450 Final Nort h 10*3/uL [facility] ab (Internal) : [address] 07/18/2016 Urinalysis UR ? UA-WBC 0-3 [hpf] 0-3 [hpf] Fi [facility] Lab c (Internal) : [address] ? ? UR ? UA-RBC 0-2 [hpf] 0-2 [hpf] Final Nor th [facility] L ab (Internal) : [address] ? ? UR ABNORMA UA-bact few [hpf] none seen Final N orth L eria [hpf] [facility] L ab (Internal) : [address] ? ? UR ABNORMA UA-epit few [hpf] none seen Final N orth L helial [hpf] [facility] L ab (Internal) : [address] ? ? UR ? UA-mucu none seen none seen Final No rth s [hpf] [hpf] [facility] L ab (Internal) : [address] 07/18/2016 Urinalysis UR ? UA-colo yellow pale yellow Fi [facility] Dipstick, Hospita l Lab Reflex (Internal) : Micro [address] t ? ? UR ? UA-appe clear clear Final [facility] L ab (Internal) : [address] t ? ? UR ? UA-spec <=1.005 1.003-1.035 Final No rth Grav [facility] L ab (Internal) : [address] ? ? UR ? UA-pH 5.0 [pH] 4.6-8.0 Final [place] [pH] [facility] ab (Internal) : [address] ? ? UR ? UA-leuk negative negative Final [facility] ([facility]) : [address] ? ? UR ? UA-nitr negative negative Final Nort h ite [facility] L ab (Internal) : [address] ? ? UR ? UA-prot negative negative Final Nort h [facility] L ab (Internal) : [address] ? ? UR ? UA-gluc negative negative Final Nort h [facility] L ab (Internal) : [address] ? ? UR ? UA-keto negative negative Final Nort h ne [facility] L ab (Internal) : [address] ? ? UR ? UA-urob normal normal Final North [place] [facility] L ab (Internal) : [address] ? ? UR ? UA-bili negative negative Final Nort h [facility] L ab (Internal) : [address] ? ? UR ABNORMA UA-bloo trace negative Final North L d [facility] L ab (Internal) : [address] 07/11/2016 Venipunctu BLD ? Venpn* ? ? [facility] : [address] 07/11/2016 BMP, Serum S ? g/r 103 mg/dL 74-106 Final North or Plasma mg/dL [facility] (Internal) : [address] ? ? S ? Bun 12 mg/dL 7-17 mg/dL Final Nort h [facility] L ab (Internal) : [address] ? ? S ? Crea 0.70 mg/dL 0.52-1.04 Final Nor th mg/dL [facility] (Internal) : [address] ? ? S Low Ca 8.1 mg/dL 8.4-10.2 Final [facility] mg/dL [facility] (Internal) : [address] ? ? S ? Na 138 mmol/L 137-145 Final [place] mmol/L [facility] L ab (Internal) : [address] ? ? S Low K 3.0 mmol/L 3.5-5.1 Final [facility] mmol/L [facility] (Internal) : [address] ? ? S ? Cl 99 mmol/L 98-107 Final [place] mmol/L [facility] L ab (Internal) : [address] ? ? S ? Tco2 27.0 mmol/L 22.0-30.0 Final No rth mmol/L [facility] L ab (Internal) : [address] 07/06/2016 Venipunctu BLD ? Venpn* ? ? Final N orth re [facility] L ab (Internal) : [address] 07/06/2016 Neutrophil BLD ? Anc-man 15.48 ? Final [place] Count, ual 10*3/uL [facility] Lab (Anc), (Internal) : Blood [address] 07/06/2016 Differenti BLD High Polys 84 % 40-75 % Final N orth al, [facility] Blood (Internal) : [address] ? ? BLD ? Bands 1 % 0-5 % Final [facility] L ab (Internal) : [address] ? ? BLD Low Lymphs 8 % 20-50 % Final [facility] L ab (Internal) : [address] ? ? BLD ? [place] 6 % 2-10 % Final [facility] L ab (Internal) : [address] ? ? BLD ? Eos 1 % 0-6 % Final [facility] L ab (Internal) : [address] ? ? BLD ? Baso 0 % 0-1 % Final [facility] L ab (Internal) : [address] ? ? BLD ? Atyp 0 % ? Final [facility] L ab (Internal) : [address] ? ? BLD ? Plts, adequate adequate Final [facility] L ab (Internal) : [address] ? ? BLD ? RBC normal normal Final [facility] L ab (Internal) : [address] 07/06/2016 CBC W/ BLD High Wbc 18.2 10*3/uL 5.0-10.0 Final [place] Auto Diff 10*3/uL [facility] L ab (Internal) : [address] t ? ? BLD Low Rbc 3.44 10*6/uL 4.10-5.30 Final N orth 10*6/uL [facility] L ab (Internal) : [address] ? ? BLD Low Hgb 11.3 g/dL 12.0-16.0 Final Nort h g/dL [facility] ab (Internal) : [address] t ? ? BLD Low Hct 32.4 % 37.0-47.0 % Final [facility] L ab (Internal) : [address] ? ? BLD ? Mcv 94.2 fL 80.0-96.0 Final [facility] L ab (Internal) : [address] t ? ? BLD High Mch 32.8 pg 26.0-32.0 Final [facility] L ab (Internal) : [address] ? ? BLD ? Mchc 34.9 g/dL 31.0-35.0 Final Nort h g/dL [facility] L ab (Internal) : [address] ? ? BLD ? Rdw 12.6 % 11.5-14.5 % Final [facility] L ab (Internal) : [address] t ? ? BLD ? Plt 211 10*3/uL 130-450 Final Nort h 10*3/uL [facility] L ab (Internal) : [address] 07/06/2016 BMP, Serum PLASMA High g/r 128 mg/dL 74-106 Final [facility] Plasma mg/dL [facility] L ab (Internal) : [address] ? ? PLASMA ? Bun 9 mg/dL 7-17 mg/dL Final [facility] L ab (Internal) : [address] ? ? PLASMA ? Crea 0.90 mg/dL 0.52-1.04 Final [facility] th mg/dL [facility] L ab (Internal) : [address] ? ? PLASMA Low Ca 7.7 mg/dL 8.4-10.2 Final [place] mg/dL [facility] L ab (Internal) : [address] ? ? PLASMA Low Na 135 mmol/L 137-145 Final [place] mmol/L [facility] L ab (Internal) : [address] ? ? PLASMA Low K 2.9 mmol/L 3.5-5.1 Final [place] mmol/L [facility] L ab (Internal) : [address] t ? ? PLASMA ? Cl 104 mmol/L 98-107 Final [place] mmol/L [facility] L ab (Internal) : [address] ? ? PLASMA Low Tco2 20.0 mmol/L 22.0-30.0 Final No rth mmol/L [facility] L ab (Internal) : [address] 07/05/2016 Venipunctu BLD ? Venpn* ? ? Final N orth re [facility] L ab (Internal) : [address] 07/05/2016 Neutrophil BLD ? Anc-man 22.76 ? Final [place] Count, ual 10*3/uL [facility] Lab (Anc), (Internal) : Blood [address] 07/05/2016 Differenti BLD High Polys 92 % 40-75 % Final N orth al, [facility] Blood (Internal) : [address] ? ? BLD ? Bands 0 % 0-5 % Final [facility] L ab (Internal) : [address] ? ? BLD Low Lymphs 5 % 20-50 % Final [facility] L ab (Internal) : [address] ? ? BLD ? [place] 3 % 2-10 % Final [facility] L ab (Internal) : [address] ? ? BLD ? Eos 0 % 0-6 % Final [facility] L ab (Internal) : [address] ? ? BLD ? Baso 0 % 0-1 % Final [facility] L ab (Internal) : [address] ? ? BLD ? Atyp 0 % ? Final [facility] L ab (Internal) : [address] ? ? BLD ? Plts, adequate adequate Final [facility] L ab (Internal) : [address] ? ? BLD ? RBC normal normal Final [facility] L ab (Internal) : [address] 07/05/2016 CBC W/ BLD High Wbc 24.7 10*3/uL 5.0-10.0 Final [place] Auto Diff 10*3/uL [facility] L ab (Internal) : [address] t ? ? BLD Low Rbc 3.44 10*6/uL 4.10-5.30 Final N orth 10*6/uL [facility] L ab (Internal) : [address] ? ? BLD Low Hgb 11.6 g/dL 12.0-16.0 Final Nort h g/dL [facility] L ab (Internal) : [address] t ? ? BLD Low Hct 32.2 % 37.0-47.0 % Final [facility] L ab (Internal) : [address] ? ? BLD ? Mcv 93.6 fL 80.0-96.[address] [facility] Hospital L ab (Internal) : [address] ? ? BLD High Mch 33.7 pg 26.0-32.0 Final [facility] Hospital L ab (Internal) : [address] t ? ? BLD High Mchc 36.0 g/dL 31.0-35.0 Final Nort h g/dL [facility] L ab (Internal) : [address] ? ? BLD ? Rdw 12.6 % 11.5-14.5 % Final [facility] L ab (Internal) : [address] ? ? BLD ? Plt 166 10*3/uL 130-450 Final Nort h 10*3/uL [facility] L ab (Internal) : [address] 07/05/2016 BMP, Serum PLASMA High g/r 170 mg/dL 74-106 Final [facility] Plasma mg/dL [facility] L ab (Internal) : [address] ? ? PLASMA ? Bun 13 mg/dL 7-17 mg/dL [facility] L ab (Internal) : [address] ? ? PLASMA ? Crea 0.90 mg/dL 0.52-1.04 Final Nor th mg/dL [facility] L ab (Internal) : [address] t ? ? PLASMA Low Ca 7.5 mg/dL 8.4-10.2 Final [place] mg/dL [facility] L ab (Internal) : [address] ? ? PLASMA Low Na 131 mmol/L 137-145 Final [place] mmol/L [facility] L ab (Internal) : [address] ? ? PLASMA Low K 3.4 mmol/L 3.5-5.1 Final [place] mmol/L [facility] L ab (Internal) : [address] t ? ? PLASMA ? Cl 101 mmol/L 98-107 Final [place] mmol/L [facility] L ab (Internal) : [address] ? ? PLASMA Low Tco2 20.0 mmol/L 22.0-30.0 Final No rth mmol/L [facility] L ab (Internal) : [address] 07/04/2016 Venipunctu BLD ? Venpn* ? ? Final N orth re [facility] L ab (Internal) : [address] 07/04/2016 Urinalysis UR ? UA-WBC 0-3 [hpf] 0-3 [hpf] Fi nal [place] , [facility] Lab c (Internal) : [address] ? ? UR ? UA-RBC 0-2 [hpf] 0-2 [hpf] Final Nor th [facility] L ab (Internal) : [address] ? ? UR ABNORMA UA-bact few [hpf] none seen Final N orth L eria [hpf] [facility] L ab (Internal) : [address] ? ? UR ABNORMA UA-epit few [hpf] none seen Final N orth L helial [hpf] [facility] L ab (Internal) : [address] ? ? UR ? UA-mucu none seen none seen Final No rth s [hpf] [hpf] [facility] L ab (Internal) : [address] ? ? UR ? Amorph moderate ? Final [place] [hpf] [facility] L ab (Internal) : [address] 07/04/2016 Urinalysis UR ? UA-colo pale yellow pale yell ow Final [place] , [facility] Dipstick, Hospita l Lab Reflex (Internal) : Micro [address] ? ? UR ABNORMA UA-appe hazy clear Final [facility] ar [facility] ab (Internal) : [address] ? ? UR ? UA-spec <=1.005 1.003-1.035 Final No rth Grav [facility] ab (Internal) : [address] [place] ? ? UR ? UA-pH 5.0 [pH] 4.6-8.0 Final [place] [pH] [facility] ab (Internal) : [address] ? ? UR ? UA-leuk negative negative Final Nort h Est [facility] ab (Internal) : [address] ? ? UR ? UA-nitr negative negative Final Nort h ite [facility] ab (Internal) : [address] ? ? UR ABNORMA UA-prot trace negative Final [facility] ab (Internal) : [address] t ? ? UR ? UA-gluc negative negative Final Nort [facility] ab (Internal) : [address] ? ? UR ? UA-keto negative negative Final Nort h [facility] ab (Internal) : [address] ? ? UR ABNORMA UA-urob positive normal Final [facility] ab (Internal) : [address] ? ? UR ? UA-bili negative negative Final Nort [facility] ab (Internal) : [address] ? ? UR ABNORMA UA-bloo small negative Final [facility] ab (Internal) : [address] t 07/04/2016 Culture, UR ? Final microbiology ? Final [place] Urine results [facility] (Internal) : [address] 07/04/2016 C Diff STOOL ? C. Diff negative negative Final [facility] (Nch) [facility] L Qual, PCR, (Inter nal): Stool [address] 07/04/2016 Culture, BLD ? Final microbiology ? Final [place] Blood results [facility] L ab (Internal) : [address] 07/04/2016 Neutrophil BLD ? Anc-man 22.53 ? Final [place] Count, ual 10*3/uL [facility] Lab (Anc), (Internal) : Blood [address] 07/04/2016 Differenti BLD High Polys 90 % 40-75 % Final N orth al, [facility] Blood (Internal) : [address] ? ? BLD ? Bands 5 % 0-5 % Final [facility] L ab (Internal) : [address] ? ? BLD Low Lymphs 2 % 20-50 % Final [facility] L ab (Internal) : [address] ? ? BLD ? [place] 3 % 2-10 % Final [facility] L ab (Internal) : [address] ? ? BLD ? Eos 0 % 0-6 % Final [facility] L ab (Internal) : [address] ? ? BLD ? Baso 0 % 0-1 % Final [facility] L ab (Internal) : [address] ? ? BLD ? Atyp 0 % ? Final [facility] L ab (Internal) : [address] ? ? BLD ? Plts, adequate adequate Final [facility] L ab (Internal) : [address] ? ? BLD ? RBC normal normal [facility] (Internal[facility] : [address] 07/04/2016 Troponin S ? Trop <0.06 NG/mL 0.00-0.06 Fin al [place] I, Serum NG/mL Country or Plasma Hospita l Lab (Internal) : [address] 07/04/2016 Lipase, S Low Lip <20 U/L 23-300 U/L Final [place] Serum or [facility] Plasma Hospital L ab (Internal) : [address] 07/04/2016 CMP, Serum S High g/r 218 mg/dL 74-106 Final [place] or Plasma mg/dL [facility] L ab (Internal) : [address] ? ? S High Bun 22 mg/dL 7-17 mg/dL Final Nort [facility] (Internal) : [address] ? ? S High Crea 1.10 mg/dL 0.52-1.04 Final Nor th mg/dL [facility] ab (Internal) : [address] ? ? S Low Ca 8.3 mg/dL 8.4-10.2 Final [place] mg/dL [facility] L ab (Internal) : [address] ? ? S Low Na 128 mmol/L 137-145 Final [place] mmol/L [facility] L ab (Internal) : [address] ? ? S Low K 3.1 mmol/L 3.5-5.1 Final [place] mmol/L [facility] L ab (Internal) : [address] ? ? S Low Cl 93 mmol/L 98-107 Final [place] mmol/L [facility] L ab (Internal) : [address] ? ? S Low Tco2 19.0 mmol/L 22.0-30.0 Final No rth mmol/L [facility] ab (Internal) : [address] ? ? S ? Tp 7.1 g/dL 6.3-8.2 Final [place] g/dL [facility] Hospital L ab (Internal) : [address] ? ? S ? Alb 3.5 g/dL 3.5-5.0 Final [facility] g/dL [facility] ab (Internal) : [address] ? ? S ? Tbil 1.0 mg/dL 0.2-1.3 Final [place] mg/dL [facility] Hospital L ab (Internal) : [address] ? ? S ? Alp 113 U/L 38-126 U/L Final [facility] L ab (Internal) : [address] ? ? S ? Alt 34 U/L 9-52 U/L Final [place] (Sgpt) [facility] L ab (Internal) : [address] ? ? S ? Ast 26 U/L 14-36 U/L Final [place] (Sgot) [facility] L ab (Internal) : [address] 07/04/2016 CBC W/ BLD High Wbc 23.7 10*3/uL 5.0-10.0 Final [place] Auto Diff 10*3/uL [facility] Hospital L ab (Internal) : [address] t ? ? BLD ? Rbc 4.10 10*6/uL 4.10-5.30 Final N orth 10*6/uL [facility] Hospital L ab (Internal) : [address] ? ? BLD ? Hgb 13.6 g/dL 12.0-16.0 Final Nort h g/dL [facility] L ab (Internal) : [address] ? ? BLD ? Hct 38.1 % 37.0-47.0 % Final [facility] L ab (Internal) : [address] ? ? BLD ? Mcv 92.9 fL 80.0-96.0 Final [facility] (Internal) : [address] ? ? BLD High Mch 33.2 pg 26.0-32.0 Final [facility] L ab (Internal) : [address] ? ? BLD High Mchc 35.7 g/dL 31.0-35.0 Final Nort h g/dL [facility] L ab (Internal) : [address] ? ? BLD ? Rdw 12.3 % 11.5-14.5 % Final [facility] L ab (Internal) : [address] ? ? BLD ? Plt 157 10*3/uL 130-450 Final Nort h 10*3/uL North [facility] [address] 07/04/2016 Culture, BLD ? Final microbiology ? Final [place] Blood results [facility] ([facility]) : [address] 05/16/2016 Venipunctu BLD ? Venpn* ? ? Final N orth re [facility] ([facility]) : [address] 05/16/2016 Creatinine S ? Crea 0.90 mg/dL 0.52-1.04 Fi n[place] , Serum or mg/dL [facility] (Internal) : [address] Past Encounters 12/07/2020 Pain in Left Knee; Hand Wart Jayleen Nash MD: [address] [place] [phone], Ph. 04/20/2020 Adult Health Examination; Screening Mamm ography; Covid-19 Jayleen Nash MD: [address] [place] [phone], Ph. 10/14/2019 Obstructive Sleep Apnea Syndrome Nereyda Ortega, BISTRO SERVER: [address] [place] [address], Ph. 09/09/2019 Impaired Fasting Glycemia; Hyperlipidemi a; Benign Hypertension; Pain in Left Knee Jayleen Nash MD: [address] [place] [phone], Ph. 07/08/2019 Obstructive Sleep Apnea Syndrome Nereyda Ortega, BISTRO SERVER: [address] [place] [address], Ph. Social History Tobacco Smoking Status Former Smoker Notes: Quit 19 96. started age 18 and smoked 1 ppd Vaccine List Vaccine Type COVID-19, mRNA, LNP-S, PF, 100 mcg/0.5 m L dose 05/25/2020?0.5 mL 06/21/2020?100 mcg Hep B, adult influenza, injectable, quadrivalent 01/04/2020 influenza, seasonal, injectable 01/28/2005 influenza, seasonal, injectable, preserv ative free 12/28/2008?0.5 mL 02/06/2011?0.5 mL 01/02/2012?0.5 mL novel [id number], all formulation s 12/28/2008?0.5 mL pneumococcal conjugate PCV 13 12/10/2015?0.5 mL pneumococcal polysaccharide [id number] 03/04/2013?0.5 mL Td (adult), adsorbed 03/04/2019 Tdap 08/15/2005 zoster live 06/27/2011?0.65 mL Plan of Care Reminders Provider Appointments None ? ? recorded. Lab None ? ? recorded. Referral None ? ? recorded. Procedures None ? ? recorded. Surgeries None ? ? recorded. Imaging None ? ? recorded. Vitals 12/07/2020 04:00PM Follow Up 20 Height Weight BMI Blood Pressure 161.93 cm 80.29 kg 30.6 kg/m2 130/88 mm[Hg] 04/20/2020 04:00PM AWV 40 Height Weight BMI Blood Pressure 161.93 cm 81.19 kg 31 kg/m2 140/82 mm[Hg] 10/14/2019 12:30PM Office 30 Height Weight BMI Blood Pressure 161.93 cm 76.66 kg 29.2 kg/m2 147/75 mm[Hg] 09/09/2019 12:40PM Follow Up 20 Height Weight BMI Blood Pressure 161.93 cm 77.56 kg 29.6 kg/m2 120/80 mm[Hg] 07/08/2019 11:30AM Office 30 Height Weight BMI 161.93 cm 76.66 kg 29.2 kg/m2 06/08/2019 02:45PM Office 15 Height Blood Pressure 161.93 cm 122/82 mm[Hg] 05/16/2019 09:00AM Office 15 Height Blood Pressure 161.93 cm 152/100 mm[Hg] 03/04/2019 01:20PM AWV 40 Height Weight BMI Blood Pressure 161.93 cm 78.02 kg 29.8 kg/m2 135/70 mm[Hg] 08/30/2018 01:20PM Follow Up 20 Height Weight BMI Blood Pressure 161.93 cm 78.79 kg 30 kg/m2 130/80 mm[Hg] 03/01/2018 03:20PM Follow Up 20 Height Weight BMI Blood Pressure 161.93 cm 79.74 kg 30.4 kg/m2 130/60 mm[Hg] 01/27/2018 04:00PM Acute 20 Height Weight BMI Blood Pressure 161.93 cm 77.71 kg 29.6 kg/m2 132/64 mm[Hg] 01/18/2018 03:40PM Any 20 Blood Pressure 128/78 mm[Hg] 04/13/2017 Weight Blood Pressure 79.01 kg 148/88 mm[Hg] 07/30/2016 Weight Blood Pressure 74.19 kg 128/78 mm[Hg] 07/11/2016 Weight Blood Pressure 77.16 kg 158/76 mm[Hg] 05/29/2016 Height Weight Blood Pressure 161.29 cm 78.53 kg 150/86 mm[Hg] 05/20/2016 Blood Pressure 150/90 mm[Hg] 04/29/2016 Weight Blood Pressure 77.97 kg 140/68 mm[Hg] 12/10/2015 Height Weight Blood Pressure 161.93 cm 75.89 kg 135/82 mm[Hg] 04/13/2015 Height Weight Blood Pressure 161.93 cm 75.89 kg 129/70 mm[Hg] 2014 Weight Blood Pressure 75.39 kg 144/86 mm[Hg] 10/06/2014 Height Weight Blood Pressure 162.56 cm 74.59 kg 124/66 mm[Hg] 03/31/2014 Height Weight Blood Pressure 162.56 cm 74.93 kg 124/74 mm[Hg] 09/02/2013 Height Weight Blood Pressure 163.19 cm 75.8 kg 130/70 mm[Hg] 04/21/2013 Height Weight Blood Pressure 162.56 cm 76.75 kg (1) 170/90 mm[Hg] (2) 160/78 mm[Hg] 03/04/2013 Height Weight Blood Pressure 163.19 cm 77.07 kg (1) 140/70 mm[Hg] (2) 140/78 mm[Hg] 07/16/2012 Height Weight Blood Pressure 163.19 cm 75.52 kg 140/80 mm[Hg] 01/02/2012 Height Weight Blood Pressure 162.56 cm 74.8 kg 118/74 mm[Hg] 06/27/2011 Height Weight Blood Pressure 162.56 cm 76.25 kg 132/66 mm[Hg] 02/06/2011 Height Weight Blood Pressure 164.47 cm 75.61 kg (1) 118/80 mm[Hg] (2) 118/72 mm[Hg] 12/20/2010 Height Weight Blood Pressure 162.56 cm 76.79 kg 120/68 mm[Hg] 06/14/2010 Height Weight Blood Pressure 162.56 cm 74.84 kg 118/64 mm[Hg] 11/23/2009 Weight Blood Pressure 75.02 kg (1) 110/70 mm[Hg] (2) 108/68 mm[Hg] 05/25/2009 Weight Blood Pressure 75.3 kg (1) 148/82 mm[Hg] (2) 132/74 mm[Hg] (3) 138/80 mm[Hg] 11/03/2008 Height Weight Blood Pressure 163.19 cm 73.94 kg 112/70 mm[Hg] 05/31/2008 Weight Blood Pressure 75.75 kg 120/74 mm[Hg] 05/05/2008 Weight Blood Pressure 75.75 kg (1) 110/60 mm[Hg] (2) 110/62 mm[Hg] 10/29/2007 Height Weight Blood Pressure 163.19 cm 74.39 kg (1) 110/62 mm[Hg] (2) 118/60 mm[Hg] 04/02/2007 Weight Blood Pressure 75.3 kg 120/70 mm[Hg] 02/26/2007 Blood Pressure 136/82 mm[Hg] 02/23/2007 Weight Blood Pressure 74.39 kg 130/80 mm[Hg] 01/21/2007 Blood Pressure 130/90 mm[Hg] 01/18/2007 Weight Blood Pressure 74.84 kg 132/80 mm[Hg] 09/25/2006 Height Weight Blood Pressure 163.83 cm 74.84 kg 116/70 mm[Hg] 07/31/2006 Weight Blood Pressure 75.75 kg 120/70 mm[Hg] 06/05/2006 Height Weight 165.1 cm 70.31 kg 12/30/2005 Weight Blood Pressure 72.57 kg 116/78 mm[Hg] 09/17/2005 Height Blood Pressure 165.1 cm 122/78 mm[Hg] 08/22/2005 Height Weight Blood Pressure 163.19 cm 72.57 kg 122/80 mm[Hg] 07/23/2005 Weight Blood Pressure 72.12 kg 122/64 mm[Hg] 07/14/2005 Weight Blood Pressure 72.57 kg 108/64 mm[Hg] 06/09/2005 Weight Blood Pressure 72.12 kg 130/82 mm[Hg] 08/28/2004 Blood Pressure 130/80 mm[Hg] 07/19/2004 Weight Blood Pressure 76.66 kg 120/70 mm[Hg] 07/12/2004 Weight Blood Pressure 76.2 kg 120/70 mm[Hg] 06/20/2004 Weight Blood Pressure 74.84 kg 110/70 mm[Hg] 06/07/2004 Weight Blood Pressure 75.3 kg 122/86 mm[Hg]
[2020-12-12 10:06] LABS: Abs Immature Grans 0.03 10^3/uL (0.0-0.06); Absolute Basophil Count 0.06 10^3/uL (0.0-0.2); Absolute Eosinophil Count 0.27 10^3/uL (0.0-0.7); Absolute Lymphocyte Count 1.83 10^3/uL (1.2-3.4); Absolute Monocyte Count 0.74 10^3/uL (0.1-0.8); Absolute Neutrophil Count 6.69 10^3/uL (1.2-6.7); Basophils % 0.6; Eosinophils % 2.8; HCT 44.5 % (36.0-46.0); HGB 15.1 g/dL (11.2-15.7); Immature Grans % 0.3; MCH 34.6 pg (27.0-33.0); MCHC 33.9 % (32.0-36.0); MCV 101.8 fL (80-95); MPV 10.7 fL (8.0-11.0); Monocytes % 7.7; Neutrophils % 69.6; Nucleated RBC 0 %; Platelet Count 218 10^3/uL (130-400); RBC 4.37 10^6/uL (3.93-5.22); RDW 12.9 % (11.7-14.6); RDW-SD 49.1 fL; WBC 9.62 10^3/uL (4.4-10.8)
[2020-12-12] MEDS: Normal Saline 500 ML IV (10:08)
[2020-12-12 10:17] LABS: Magnesium 1.7 mg/dL (1.8-2.4)
--- NOTE | 2020-12-12 10:20 | ED.GENADUL_ITS ---
Discharge Plan Disposition Patient Disposition: HOME Condition: Stable Discharge Details Clinical Impression: Dizziness Primary Care Provider: Jean-Claude Suh ED Provider: Ronda Simpson Home Meds and New Rx's Prescriptions: New meclizine 25 mg tablet 25 mg PO TID PRNQty: 10 RF: 0 Continued metoprolol succinate 50 mg tablet extended release 24 hr 50 mg PO DAILY RF: 0 omeprazole 40 mg capsule,delayed release(DR/EC) 40 mg PO DAILY RF: 0 famotidine 20 mg tablet 20 mg PO DAILY RF: 0 naproxen sodium [Aleve] 220 mg Tablet 50 mg PO BID RF: 0 No Action aspirin [Aspir-81] 81 mg Tablet,Delayed Release (Dr/Ec) 81 mg PO DAILY RF: 0 Discharge Instructions Instructions: Dizziness (ED) Additional Instructions: Please follow-up with your primary care physician 24 to 48 hours for reevaluation Reevaluation continue on your prescribed medications and have your doctor recheck your blood pressure as it was slightly elevated Hydrate and continue with your prescribed medications You may try meclizine if you have a recurrent episode, if this is not effective, you should be reevaluated in the emergency room Referrals: Jean-Claude Suh MD [Primary Care Provider] - Discharge Data Discharge Date/Time-TO BE ENTERED AT DEPARTURE: 12/12/20 14:07 Medical Decision Making <PURA Choi - Last Filed: 12/13/20 08:20> Patient appears well, initially her blood pressure was elevated, at time of discharge is 140/73 without intervention Her exam is completely nonfocal and after fluids and meclizine she has symptomatically improved CTA and MRI do not indicate any acute abnormality, specifically no CVA, dissection, tumor masses or lesions Patient feels comfortable discharge home, she will discuss with her primary care physician regarding her blood pressure and have this rechecked closely in the outpatient setting My suspicion is low for TIA and I suspect given her negative work-up but her symptoms were likely peripheral in nature No clinical evidence of hypertensive urgency or CVA Only close outpatient follow-up, discharged home in stable condition with stable vitals, alert, oriented, of decisional capacity with steady gait and overall feeling symptomatically improved Medical Records Medical records reviewed: Yes I reviewed the patient's medical records. Lab Data Lab results reviewed: Yes I reviewed the patient's lab results. ECG Data Prior ECG tracings: available for review <Kevin Kenyon MD - Last Filed: 12/13/20 16:53> Patient seen, examined, and discussed with PURA Simpson. To augment history documented by PURA Simpson, dizziness moderate to severe and worse with movement. Concern for posterior CVA as etiology for symptoms. CVA ruled out with MRI. Suspect peripheral vertigo. Patient had notable improvement with meclizine. I agree with treatment plan as discussed/documented by PURA Simpson. HPI <PURA Choi - Last Filed: 12/13/20 08:20> General Mode of arrival: ambulatory . Date/Time Provider Initiated Documentation: 12/12/20 08:43 . Limitations to Documentation: no limitations . Information obtained by: patient . HPI Narrative: This 75-year-old female presents with onset of dizziness when she awakes. She states that she awoke this morning and felt as though she was moving in the room . She states she is able to ambulate but has to use caution. Denies any strength or sensation change. Denies any chest pain, shortness of breath, dizziness, weakness. She reportedly was quite hypertensive at work, 210/110. She was sent to the emergency room for further evaluation. She denies prior history of similar sensation in the past. She states she also feels like she might pass out . 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 She denies any change in this today. Denies unilateral weakness. Denies nausea or vomiting. Denies new medications. Did take her metoprolol just prior to arrival. States at rest she is asympt omatic initiate that her symptoms return abruptly. Denies any recent head injuries or upper respiratory symptoms. Covid vaccinated denies breath. Denies known sick contacts. Denies diarrhea. Related Data Home Medications Medication Instructions Recorded Confirmed aspirin [Aspir-81] 81 mg PO DAILY 12/12/20 12/12/20 famotidine 20 mg PO DAILY 12/12/20 12/12/20 meclizine 25 mg PO TID PRN #10 tab 12/12/20 metoprolol succinate 50 mg PO DAILY 12/12/20 12/12/20 naproxen sodium [Aleve] 50 mg PO BID 12/12/20 12/12/20 omeprazole 40 mg PO DAILY 12/12/20 12/12/20 Previous Rx's Medication Instructions Recorded meclizine 25 mg PO TID PRN #10 tab 12/12/20 Allergies Allergy/AdvReac Type Severity Reaction Status Date / Time ibuprofen [From Motrin] Allergy Anaphylaxis Unverified 12/12/20 09:01 General Stated Complaint: Dizzy/Sync ARMEN: 3 Review of Systems <PURA Choi Last Filed: 12/13/20 08:20> All systems reviewed & are unremarkable except as noted in HPI and below PFSH <PURA Choi Last Filed: 12/13/20 08:20> Social History Smoking/Tobacco Use Status: Former Tobacco Use Smoking risk assessment performed?: Yes Alcohol Intake: current Alcohol Intake frequency: 0-2 drinks per day Drug use: Never Substance use type: does not use Do you feel safe at home: Yes Do you feel safe in your relationship?: Yes Exam <PURA Choi Last Filed: 12/13/20 08:20> Const General: cooperative, comfortable and no acute distress HENMT Head: normal to inspection Mouth: oral mucosae normal Throat: uvula midline Eyes Pupils: PERRL Other: No vertical or horizontal nystagmus Neck Other: No carotid bruit Resp Effort & Inspection: normal respiratory effort Cardio Rate: regular rate Rhythm: regular rhythm GI Inspection: normal to inspection Other: No abdominal bruit or pulsatile mass Skin General skin exam: no rashes or lesions noted Neuro General: patient alert, patient oriented x3, gait normal, no focal motor deficits and CN's II-XI intact bilaterally Cranial Nerves: PERRL, EOM intact bilaterally and tongue midline Cognition: normal cognition Speech: speech normal Gait: normal gait Motor: muscle tone normal throughout Sensory Exam: no sensory deficits noted Other: Negative [id number], negative heel herrera, negative pronator drift no vertical or horizontal nystagmus Extrem General: normal to inspection Other: Distal capillary refill intact, no peripheral edema, sensation intact distally Course <PURA Choi Last Filed: 12/13/20 08:20> Vital Signs Vital signs: Vital Signs Temperature 36.7 C 12/12/20 08:59 Pulse 64 12/12/20 08:59 Respiratory Rate 20 12/12/20 08:59 Blood Pressure 165/84 H 12/12/20 08:59 Pulse Oximetry 98 12/12/20 08:59 Temperature 36.7 C 12/12/20 08:59 Temperature Source Skin 12/12/20 08:59 Pulse 64 12/12/20 08:59 Respiratory Rate 20 12/12/20 08:59 Respiratory Effort Non-Labored 12/12/20 09:33 Respiratory Depth Normal 12/12/20 09:33 Respiratory Pattern Normal 12/12/20 09:33 Blood Pressure 165/84 H 12/12/20 08:59 Blood Pressure Position Supine 12/12/20 08:59 Pulse Oximetry 98 12/12/20 08:59 Oxygen Delivery Method Room Air 12/12/20 08:59 Oxygen Flow Rate 0 12/12/20 08:59 Pain Level 0 12/12/20 08:59 Lab/Test Results Lab/Test Results: Laboratory Tests Range/Units 12/12/20 12/12/20 09:50 09:50 WBC (4.4-10.8) 10^3/uL 9.62 RBC (3.93-5.22) 10^6/uL 4.37 Hgb (11.2-15.7) g/dL 15.1 Hct (36.0-46.0) % 44.5 MCV (80-95) fL 101.8 H MCH (27.0-33.0) pg 34.6 H MCHC (32.0-36.0) % 33.9 RDW (11.7-14.6) % 12.9 Plt Count (130-400) 10^3/uL 218 MPV (8.0-11.0) fL 10.7 Immature Gran % 0.3 Neutrophils % 69.6 Lymphocytes % 19.0 Monocytes % 7.7 Eosinophils % 2.8 Basophils % 0.6 Nucleated RBC % % 0 Absolute Neutrophils (1.2-6.7) 10^3/uL 6.69 Absolute Lymphocytes (1.2-3.4) 10^3/uL 1.83 Absolute Monocytes (0.1-0.8) 10^3/uL 0.74 Absolute Eosinophils (0.0-0.7) 10^3/uL 0.27 Absolute Basophils (0.0-0.2) 10^3/uL 0.06 Magnesium (1.8-2.4) mg/dL 1.7 L
[2020-12-12 10:24] LABS: ALT 24 U/L (14-59); AST 19 U/L (15-37); Albumin 3.9 g/dL (3.4-5.0); Alkaline Phosphatase 89 U/L (46-116); Anion Gap 12.2 mmol/L (3-11); BUN 16 mg/dL (7-18); Bilirubin, Total 0.6 mg/dL (0.2-1.0); CO2 23.8 mmol/L (21.0-32.0); CREATININE 1.2 mg/dL (0.55-1.02); Calcium 8.7 mg/dL (8.5-10.1); Chloride 105 mmol/L (98-107); Estimated GFR 44.04 (mL/min/1.73m2); Glucose 107 mg/dL (74-106); Potassium 4.1 mmol/L (3.5-5.1); Sodium 141 mmol/L (136-145)
[2020-12-12 10:25] LABS: Troponin I < 0.05 ng/mL (<0.06)
--- NOTE | 2020-12-12 11:45 | DI.MRI_ITS ---
Exam(s) MR BRAIN WO EXAM: MR BRAIN WO CLINICAL HISTORY: dizziness, HTN TECHNIQUE: Multiplanar multisequence MRI of the brain was performed. COMPARISON: No exams were available for comparison FINDINGS: VENTRICLES AND EXTRA AXIAL SPACES: Normal in size and morphology for the patient's age. MIDLINE SHIFT: None. CEREBRAL PARENCHYMA: No focus of restricted diffusion to suggest acute infarct. No space-occupying le vale identified. There is hyperintense signal in the white matter on the FLAIR and T2 weighted images most consistent with chronic micro vascular ischemic disease. HEMORRHAGE: None. BRAINSTEM/CEREBELLUM: Normal. CALVARIUM: Normal. VISUALIZED PARANASAL SINUSES/MASTOIDS:There is a small amount of fluid in the right mastoid air cells which may represent a mastoiditis. The remaining visualized paranasal sinuses and mastoid air cells are clear. [place] OF [place]: Normal flow void. PITUITARY GLAND: Unremarkable. OTHER FINDINGS: None. IMPRESSION: 1. No evidence of an acute territorial infarct. 2. Results of this exam have been verbally communicated with provider. DATA REPOSITORY:
== END 2020-12-12 14:07 | disposition home or self-care (01) ==
PROVIDERS: Emergency Provider Physician Assistant; PCP Family Medicine
DX: R42 Dizziness and giddiness (principal); I10 Essential (primary) hypertension
CPT/HCPCS: 36415; 70496; 70498; 80053; 93005; 96360; 99285; 70551; 83735; 84484; 85025; 93010

== ENCOUNTER → 2021-11-18 09:19 | Outpatient (BNVA) | payer MEDICARE, OTHER, SELFPAY | PROVIDERS: PCP Internal Medicine; Referring Provider Internal Medicine; Visit Provider Student in an Organized Health Care Education/Training Program | DX: M17.11 Unilateral primary osteoarthritis, right knee (principal); M17.12 Unilateral primary osteoarthritis, left knee | CPT/HCPCS: 99214 ==

== ENCOUNTER 2022-03-20 02:05 | Outpatient (CLI) | payer MEDICARE, OTHER, SELFPAY ==
[2022-03-20 12:58] LABS: HCT 39.9 % (36.0-46.0); HGB 13.5 g/dL (11.2-15.7); MCH 33.1 pg (27.0-33.0); MCHC 33.8 % (32.0-36.0); MCV 98 fL (80-95); MPV 10.9 fL (8.0-11.0); Platelet Count 197 10^3/uL (130-400); RBC 4.08 10^6/uL (3.93-5.22); RDW 12.8 % (11.7-14.6); RDW-SD 46.3 fL
[2022-03-20 13:44] LABS: Anion Gap 10.3 mmol/L (3-11); BUN 21 mg/dL (7-18); CO2 24.7 mmol/L (21.0-32.0); CREATININE 1.3 mg/dL (0.55-1.02); Chloride 105 mmol/L (98-107); Estimated GFR 43.15 (mL/min/1.73m2); Glucose 110 mg/dL (74-106); Potassium 4.1 mmol/L (3.5-5.1); Sodium 140 mmol/L (136-145)
== END 2022-03-20 02:06 | disposition home or self-care (01) ==
LOC: LBO 02:05
PROVIDERS: PCP Internal Medicine; Visit Provider Student in an Organized Health Care Education/Training Program
DX: M17.11 Unilateral primary osteoarthritis, right knee (principal); Z01.818 Encounter for other preprocedural examination
CPT/HCPCS: 36415; 80048; 85027

== ENCOUNTER 2022-04-15 07:06 | Day surgery (SDC) | payer MEDICARE, OTHER, SELFPAY ==
[2022-04-15] VITALS (11 sets, daily range): BP systolic 134–192; BP diastolic 70–151; PULSE 56–79; RESP 15–20; TEMP 36–36.5; O2SAT 91–100; BMI 31.5
[2022-04-15] MEDS: Acetaminophen 500 MG TAB 1000 MG PO (08:00)
--- NOTE | 2022-04-15 08:00 | W.PM.DSUDISC ---
Date of service: 04/15/22 Time of Service: 08:00 Discharge Plan Disposition Patient Disposition: Home Condition: Good Discharge Details Reason For Visit: L TKR Attending Provider: Prabhu Bales Primary Care Provider: Jayleen Nash Home Meds and New Rx's Prescriptions: New celecoxib 200 mg capsule 200 mg PO BID Qty: 60 2RF aspirin 81 mg tablet,delayed release (DR/EC) 81 mg PO BID Qty: 60 0RF acetaminophen 500 mg tablet 1,000 mg PO TID Qty: 90 3RF gabapentin 300 mg capsule 300 mg PO QHS Qty: 14 0RF oxycodone 5 mg tablet 5 mg PO Q4H MDD 6 tabs PRN (Reason: pain) Qty: 20 0RF dexamethasone 4 mg tablet 4 mg PO DAILY Qty: 2 0RF Rx Instructions: Take one tablet once daily for two days docusate sodium [Colace] 100 mg capsule 100 mg PO BID Qty: 30 0RF Continued lisinopril 20 mg tablet 30 mg PO DAILY metoprolol succinate 50 mg tablet extended release 24 hr 50 mg PO DAILY omeprazole 40 mg capsule,delayed release(DR/EC) 40 mg PO DAILY famotidine 20 mg tablet 20 mg PO DAILY meclizine 25 mg tablet 25 mg PO TID PRNQty: 10 0RF amoxicillin 500 mg capsule Label Comments: TAKE ONE CAPSULE BY MOUTH FOUR TIMES A DAY UNTIL GONE Discontinued naproxen sodium [Aleve] 220 mg capsule 220 mg PO DAILY PRN aspirin [Aspir-81] 81 mg Tablet,Delayed Release (Dr/Ec) 81 mg PO DAILY Discharge Instructions Additional Instructions: Total Knee Discharge Instructions Activity: The most important activity is to walk and to work on gentle motion (both flexion and extension). You should try to take short walks a few times a day. It is important that when resting you work on keeping the knee straight. Avoid putting a pillow behind the knee as this will encourage flexion. Work on range of motion exercises as provided by Physical Therapy. - Start outpatient physical therapy within 2 weeks. - You should wear the KASI hose on both legs for 2 weeks. You may remove these at night. You may also use any compression sock in place of the KASI hose. - Utilize [employer] to review exercises, see videos on exercises and obtain basic information pertaining to your surgery and your recovery. Dressing: Remove the Sunny wrap by 2 days after your surgery and put on the KASI stocking given to you from the hospital. Keep the surgical dressing (underneath the SUNNY wrap) in place for at least one week. After the first week it may be removed and replaced with light gauze and tape or nothing. The wound and dressing may get wet after 3 days but avoid soaking the dressing or otherwise it will need to be changed. Many people prefer covering the dressing with cling wrap (saran wrap) to minimize it from getting soaked. If it gets wet, just pat dry. If it starts to peel off then it will need to be changed. Medications: - You should take Tylenol and anti-inflammatory Celebrex as your primary pain control medications. If the Celebrex is too expensive or not covered, please call the office for another alternative (Advil/Ibuprofen or Naproxen/Aleve) - You have been prescribed a stronger pain medication Oxycodone for breakthrough pain, take as needed as prescribed. - You will continue to use your stomach acid reduction agent omeprazole to help reduce stomach acid and reflux. - You have been prescribed Gabapentin to take at night for restlessness and nerve pain. - You will be taking Aspirin 81mg twice a day for DVT prevention unless instructed otherwise. - You have also been prescribed Decadron to take to control post-operative nausea and pain. You will start this tomorrow. - If you have constipation you should take Colace (which has been prescribed) or Miralax (which is available [id number]). It takes most people 3-4 days to have a bowel movement. Follow-up: 2 weeks If you have any acute concerns or questions, please do not hesitate to contact the office at [phone]. You may contact Dr. Bales with any questions after hours through the hospital at [phone] or on his cell phone at [phone]. Referrals: Prabhu Bales MD [ [facility] STAFF PHYSICIAN] - Equipment/Supplies: Walker Activity:: Activity as Tolerated Remove Dressings/Wound Care:: Do Not Remove Shower/Bathe:: Cover Diet:: As Tolerated DS: Diagnosis Discharge Diagnosis (1) Left knee DJD: Status: Acute
[2022-04-15] MEDS: Celecoxib 200 MG CAP 400 MG PO (08:01)
[2022-04-15] MEDS: Gabapentin 300 MG CAP PO (08:01)
[2022-04-15] MEDS: Lactated Ringers 1,000 ML 80 ML IV (08:13)
--- NOTE | 2022-04-15 08:17 | W.ANESPRE ---
General Info Date of Service Date Performed: 04/15/22 Height: 5 ft 3.75 in Weight: 82.6 kg Body Mass Index (BMI): 31.5 Surgical Procedure: Operation Date: 04/15/22 09:10 Proposed Procedure Side Surgeon p Knee Total Arthroplasty Left Prabhu Bales MD Meds Allergies and Home Medications Allergies Allergy/AdvReac Type Severity Reaction Status Date / Time ibuprofen [From Motrin] Allergy Severe Anaphylaxis Unverified 04/14/22 11:23 Home Medication Medication Instructions Recorded famotidine 20 mg tablet 20 mg PO DAILY 12/12/20 meclizine 25 mg tablet 25 mg PO TID PRN #10 tabs 12/12/20 metoprolol succinate 50 mg 50 mg PO DAILY 12/12/20 tablet,extended release 24 hr omeprazole 40 mg capsule,delayed 40 mg PO DAILY 12/12/20 release lisinopril 20 mg tablet 30 mg PO DAILY 03/20/22 acetaminophen 500 mg tablet 1,000 mg PO TID #90 tabs 04/15/22 amoxicillin 500 mg capsule cap 04/15/22 aspirin 81 mg tablet,delayed 81 mg PO BID #60 tabs 04/15/22 release celecoxib 200 mg capsule 200 mg PO BID #60 caps 04/15/22 dexamethasone 4 mg tablet 4 mg PO DAILY #2 tabs 04/15/22 docusate sodium 100 mg capsule 100 mg PO BID #30 caps 04/15/22 (Colace) gabapentin 300 mg capsule 300 mg PO QHS #14 caps 04/15/22 oxycodone 5 mg tablet 5 mg PO Q4H PRN pain #20 tabs 04/15/22 Current Visit Medications: Current Medications Generic Name Dose Route Start Last Admin Trade Name Freq PRN Reason Stop Dose Admin Acetaminophen 1,000 mg 04/15/22 06:00 04/15/22 08:00 Acetaminophen 500 Mg Tab PO 1,000 mg PREOP CHARISSA Administration Acetaminophen 1,000 mg 04/15/22 14:00 Acetaminophen 500 Mg Tab PO TID CHARISSA Dexamethasone 4 mg 04/16/22 08:30 Dexamethasone 4 Mg Tab PO 04/17/22 08:31 DAILY CHARISSA Docusate Sodium 100 mg 04/15/22 07:23 Docusate Sodium 100 Mg Cap PO BID PRN PRN Constipation Gabapentin 300 mg 04/15/22 06:00 01/17/23 08:01 Gabapentin 300 Mg Cap PO 300 mg PREOP CHARISSA Administration Hydromorphone HCl 0.5 mg 04/15/22 07:23 Hydromorphone 2 Mg/Ml Vial IVP Q2H PRN PRN Tranexamic Acid 1,000 mg/ 60 mls @ 360 mls/hr 04/15/22 06:00 Sodium Chloride IVPB PREOP CHARISSA Ringer's Solution 1,000 mls @ 80 mls/hr 04/15/22 06:00 04/15/22 08:13 IV 05/14/22 23:59 80 mls/hr INFUSION CHARISSA Administration Cefazolin Sodium/Dextrose 2 gm in 50 mls @ 100 mls/hr 04/15/22 06:00 Ancef Duplex IVPB 04/15/22 16:00 PREOP CHARISSA Cefazolin Sodium/Dextrose 1 gm in 50 mls @ 100 mls/hr 04/15/22 08:00 Ancef Duplex IVPB 04/16/22 00:29 Q8H CHARISSA IV Miscellaneous Supplies 1 each 04/15/22 06:00 Iv Access IV 05/14/22 23:59 DIRECTED [facility] Ondansetron HCl 4 mg 04/15/22 07:23 Ondansetron 4 Mg/2 Ml Vial IVP Q6H PRN PRN Nausea Oxycodone HCl 0 mg 04/15/22 07:23 Oxycodone 5 Mg Tab PO Q3H PRN PRN Pain Pantoprazole Sodium 40 mg 04/16/22 07:30 Pantoprazole 40 Mg Tabcr PO DAILY@0730 [facility] Polyethylene Glycol 17 gm 04/15/22 07:23 Polyethylene Glycol 3350 17 Gm Packet PO BID PRN PRN Constipation Sodium Chloride 0 ml 04/15/22 06:00 Normal Saline Flush 10 Ml Syr IV 05/14/22 23:59 PRN PRN Sodium Chloride 0 ml 04/15/22 06:00 Normal Saline 10 Ml Vial IJ 05/14/22 23:59 DIRECTED PRN Sterile Water 0 ml 04/15/22 06:00 Water,Injection,Sterile 10 Ml Vial IJ 05/14/22 23:59 DIRECTED PRN PFSH Active Problems Active Problems: Problem Status Onset Code History of total left knee replacement (TKR) 04/15/22 Z96.652 Dizziness R42 Left knee DJD M17.12 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 states her mother had a cardiac arrest to Pentothal 04/15/22 - heart murmur on ascultation Surgical History Surgical History (Updated 04/15/22 @ 08:01 by PURA Melton) Cataract s/p cataract surgery Fusion of toes Left great toe History of appendectomy History of breast biopsy Bilateral for fibrocystic changes History of hysterectomy Tobacco Smoking/Tobacco Use Status: Former Tobacco Use Alcohol Alcohol Intake: current Alcohol intake frequency: 0-2 drinks per day Substance Use Substance use: Never Substance use type: does not use Vital Signs and Lab Results Vital Signs Most Recent Vital Signs in EMR: Most Recent Vital Signs Temp Pulse Resp BP Pulse Ox 36.5 C 56 L 16 144/79 H 98 04/15/22 07:34 04/15/22 07:34 04/15/22 07:34 04/15/22 07:34 04/15/22 07:34 Lab Results Blood Type / Crossmatch: No Data to Display Complete Blood Count: White Blood Count 9.20 10^3/uL (4.4-10.8) 03/20/22 12:45 Red Blood Count 4.08 10^6/uL (3.93-5.22) 03/20/22 12:45 Hemoglobin 13.5 g/dL (11.2-15.7) 03/20/22 12:45 Hematocrit 39.9 % (36.0-46.0) 03/20/22 12:45 Platelet Count 197 10^3/uL (130-400) 03/20/22 12:45 Complete Metabolic Panel: Sodium 140 mmol/L (136-145) 03/20/22 12:45 Potassium 4.1 mmol/L (3.5-5.1) 03/20/22 12:45 Chloride 105 mmol/L (98-107) 03/20/22 12:45 Carbon Dioxide 24.7 mmol/L (21.0-32.0) 03/20/22 12:45 BUN 21 mg/dL (7-18) H 03/20/22 12:45 Creatinine 1.3 mg/dL (0.55-1.02) H 03/20/22 12:45 Est GFR (CKD-EPI 2020) 43.15 (mL/min/1.73m2) 03/20/22 12:45 Calcium 9.0 mg/dL (8.5-10.1) 03/20/22 12:45 Glucose 110 mg/dL (74-106) H 03/20/22 12:45 Liver Function Panel: No Data to Display Coagulation Panel: No Data to Display Cardiac Panel: No Data to Display Arterial Blood Gas: No Data to Display Venous Blood Gas: No Data to Display Pancreas Panel: No Data to Display Thyroid Panel: No Data to Display Infectious Disease: No Data to Display Blood Cultures: No Data to Display Toxicology Panel: No Data to Display Imaging and Studies Imaging and Studies Study information below may be from another EMR and interpreted by another provider. Please see original notes in EMR for more complete details. EKG Summary: Conclusion Sinus bradycardia...rate< 60 Consider left ventricular hypertrophy...(S V1+R V5/V6) >3.25mV 12/12/20 Anesthesia Assessment and Plan Anesthesia History Personal History: No History of Anesthesia Complications Family History: No Family History of Anesthesia Complications and Other Exercise Tolerance Exercise Tolerance: Metabolic Equivalents>4 Pertinent Negatives Pertinent Negatives: No Symptoms of GERD, No Major Cardiovascular Symptoms or Complaints, No Major Pulmonary Symptoms or Complaints and No History of CVA/TIA Cardiac & Pulmonary Exam Cardiac Exam: Normal S1/S2 Heart Sounds Pulmonary Exam: Clear Bilateral Breath Sounds Cardiac and Pulmonary Comment:: No murmur appreciated. 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 ASA Classification ASA Score: ASA 2 Emergency Case?: No NPO Status NPO Status: NPO Clears >2 hours, Solids >8 hours Anesthesia Plan Resuscitation Status: Full Code Anesthesia Technique: Spinal Anesthesia Airway Planned: Natural Airway Pain Management: Surgeon and patient request nerve block Monitors Used: Standard Monitors Preoperative Comments:: Spinal with general back up. Difficult spinal per patient in the past.
[2022-04-15] MEDS: ceFAZolin 2 GM/50 ML BAG IVPB (08:51)
--- NOTE | 2022-04-15 09:35 | W.ANESNERVE ---
Nerve Block Single Injection Procedure Date and Time Date Performed: 04/15/22 Procedure Start: 08:31 Location Where Procedure Performed Procedure Location: Day Surgery Unit Reason Performed: Postoperative Analgesia Requesting Provider: Prabhu Bales Timeout Performed Timeout Performed: Yes Monitoring Used ECG, Blood Pressure and SpO2 Sterility Sterility: Hand Hygiene, Surgical Cap, Surgical Mask, Sterile Gloves and Chlorhexidine Sedation Given During Procedure Sedation Given (Indicate Dose Given): No Sedation given Patient Mental Status Patient Mental Status: Awake Nerve Block 1st Nerve Block: Laterality: Left Block Type: Adductor Canal Ultrasound Image Saved?: Yes Needle / Catheter Used: 100mm SonoPlex II Local Anesthetic Bolus (Indicate Dose Given): Lidocaine used for local infiltration of skin and Bupivacaine 0.25% Dose:: 15 Additives (Indicate Dose Given): None Ultrasound: Sterile probe cover and gel used Nerve Stimulator: Not Used Paresthesia: None Procedure Tolerated: No Complications Procedure Outcome: Successful Performed By: Celeste Horner Supervised By: Ambika Guajardo
--- NOTE | 2022-04-15 10:34 | ROE_ITS ---
Date of service: 04/15/22 Time of Service: 10:35 Operative Note Operative Note DATE OF PROCEDURE: 04/15/22 PRE-OP DIAGNOSIS: Left Knee Osteoarthritis POST-OP DIAGNOSIS: same PROCEDURE: Left Total Knee Replacement SURGEON: Prabhu Bales SALES ATTENDANT [employer]: Tony Amador ANESTHESIA TYPE: Spinal Refer to Anesthesia Record ESTIMATED BLOOD LOSS: 150 PATHOLOGY: none sent COMPLICATIONS: None Patient was transported to: PACU Patient's condition: stable Implants: 1. Depuy Attune Cruciate Retaining Femoral Component, Size 5 2. Depuy Attune Rotating Platform Tibial Component, Size 4 3. Depuy Attune 5x8 CR,RP Poly 4. Depuy Attune Patellar Component, Size 35 Indications: I have seen Marychuy in clinic for symptoms of knee arthritis, confirmed with radiographic findings. [NAME] has exhausted nonoperative methods and was having significant limitations in daily function and desired better function and less pain. I discussed the technical details of a knee replacement. I explained the risks of the procedure to include, but not limited to, bleeding, infection, pain, stiffness, fracture, damage to nerves and vessels, damage to muscles and tendons, loosening, need for repeat procedure, blood clot and cardiopulmonary demise. Despite these risks, [NAME] elected to proceed. Findings: There was significant signs of arthritis throughout the knee, primarily of the medial compartment with bony deformity and large osteophytes. Procedure Description: Davida was greeted in the preoperative holding area where the correct side was identified and marked. The consent was reviewed with the patient and signed. The history and physical was updated. All questions were answered. Preoperative mediacations were administered: Acetaminophen 1000mg, Celebrex 400mg, and Gabapentin 300mg. An adductor canal block was then administered by the anesthesia team in the PACU. Davida was taken back to the operating room. A spinal anesthestic was then administered. The patient was placed into the supine position on the operating room table. A nonsterile tourniquet was placed high onto the leg but only used for cementing. Posts were placed for positioning during the procedure. All bony prominences were well padded. Prophylactic antibiotics in the form of Cefazolin were administered. 1g of Tranxemic Acid was given intravenously within 30 minutes of incision. The left leg was then prepped with Chloraprep and draped in a standard fashion with impervious stockinette and extremity drape. A second prep with Chloraprep was performed prior to placing Ioband. A timeout to confirm correct identity, side and site, procedure, allergies, anesthesia, and medical concerns was performed. With the knee in some flexion, a midline incision was made overlying the knee. Full thickness skin flaps were raised once the extensor mechanism was encountered. These were raised medially and laterally. Any bleeding was controlled with electrocautery. Once the extensor mechanism was fully exposed, a medial parapatellar arthrotomy was performed in a flexed position. All bleeding from the arthrotomy and the geniculate arteries was coagulated. A medial subperiosteal peel was performed with electrocautery to the midcoronal plane. Due to the significant varus deformity the entire medial tibial plateau was exposed. The fat pad was removed while keeping the patellar tendon protected. The anterior distal femur synovium was removed for later visualization. The ACL and PCL were resected and the anterior horn of the lateral meniscus was transected. The knee was then flexed with the patella everted. Large osteophytes from the tibia were removed. Large osteophytes from the femur were removed. There was notable deformity of the medial tibia. Using a step drill, and based on preoperative templating, the femoral canal was entered. This was done with a step drill without any difficulty. The intramedullary distal femoral cut guide was inserted, set to a 6 degree valgus cut and 10mm cut thickness. The distal femoral cut guide was then held in position and pinned. With the soft tissues protected, the distal cut was performed. This was passed over a few times to ensure a planar cut. I then turned attention to the tibia. The extramedullary guide was placed onto the leg. The distal aspect was slid medial to adjust for position of center of ankle and stay in line with shaft of the tibia. Approximately 3-5 degrees of posterior slope was kept in the proximal cutting guide. The center of the guide was aligned with the PCL. The stylus was used to assess cut thickness. The medial side, most involved side, was set for a 4mm cut. This was then held in position and pinned into place with 2 additional pins and a cross pin for stability. The medial and lateral collateral ligaments were protected and the cut was performed. With this completed, it was assessed and noted to be of appropriate dimensions. The guide was removed. A spacer block was inserted and the knee was brought into extension. The 8mm spacer block provided full extension, without hyperextension and with stability of both the medial and lateral collateral ligaments was assessed. The pins from the femur and the tibia were then removed. The distal femur was then sized. The anterior stylus was placed onto the lateral ridge of the anterior femur. This indicated a size 5 femur. The external rotation of the guide was adjusted to 3 degrees to match the epicondylar axis, perpendicular to Taina?s line. The 4-in-1 cutting guide was the placed. The posterior medial femur cut was evaluated and appeared of good thickness. The spacer block was inserted underneath the cutting guide and stability was confirmed in 90 degrees of flexion. An yosef wing was used to confirm appropriate position of the anterior cut to avoid notching. This cutting guide was ensured to be flush on the cut surface and then pinned into place with headed pins. While protecting the soft tissues, quad tendon, and collateral ligaments, the anterior and posterior cuts were performed with a saw. The central two pins were removed and the posterior and anterior chamfers were cut next. The notch-cutting guide was placed. This was pinned to lateralize the femoral component as much as possible while keeping it flush on the cut surface. This was then pinned into position. A reciprocating saw was used to make the small notch cut. A trial CR femoral component was then inserted, impacted down to the cut surfaces, and the lug holes were drilled. A provisional trial tibial component was placed and the knee was brought through range of motion. There was noted to be excellent extension and flexion. There was no significant instability. The patella was tracking without thumbs. The tibial cut surface was fully exposed. The medial and lateral menisci were removed. The tibia was then sized as a 4. The tibia had been previously marked during trialing to correspond to the center of the tibial component to help with rotation. The trial was aligned to this tony, approximately rotated to the medial 1/3rd of the tibial tubercle. The trial was pinned into place. The tibia was prepared with a reamer and a keel punch. The knee was then brought into extension and the patella was measured as 22mm. Using the patellar clamp and cut guide, this was resected to a flat surface with at least 13mm of thickness remaining. The size 35 patella fit the best. This was oriented and then clamped into position. The lugs were drilled. The trial components were removed. The final components, except for the polyethylene were opened on the back table. The periosteal and capsular tissues, especially posteriorly, around the knee were then systematically injected with a periarticular cocktail consisting of 246mg of Ropivacaine, 0.5mg of Epinephrine, 0.08mg of Clonidine, and 30mg of Ketorolac, diluted to 100cc.. The tourniquet was then inflated to 275mmHg. The knee was thoroughly irrigated with a pulse lavage and dried. On the back table, with the implants opened, the cement was mixed. 2 batches of medium viscosity cement were prepared with vacuum assistance. After the cement was ready it was placed on to the back side of the tibial component. A small amount was placed onto the posterior flange of the femur. Cement was manual pressurized and impregnated into the cut surface of the tibia. The tibial component was then inserted into the cut surface and impacted into position. Excess cement was removed and the component was reimpacted. Again, excess cement was removed and our attention was then turned to the femur. The femoral cut surface was once again dried and cement was manually impacted into the cut surface. The femoral component was lined with the lug holes and impacted. Excess cement was removed. It was ensured to be down against the cut surface. The trial polyethylene was then inserted and the leg was brought out into full extension for the duration of the cement curing process, approximately 18min. Cement was lastly manually impacted into the cut surface of the patella and the patellar button was clamped into position and held. During this process attention was turned to the gutters of the knee and for all interfaces for any excess cement. While the cement was hardening, the knee was irrigated with Surgiphor Betadine solution. It was allowed to sit in the knee for 3 minutes and then it was thoroughly irrigated with saline. After the cement had finally cured, approximately 18min, the clamp was removed from the patella and the knee was taken through range of motion. A size 8mm polyethylene component provided the best range of motion and stability with less than 2mm gapping with medial and lateral stress and full extension without significant hyperextension. The patella was tracking with a no-thumbs technique. The trial poly was removed and once again the knee was checked for any loose, excess, or errant cement. The poly component was then inserted into position after cleaning and drying the tibial tray. The capsule was then reapproximated with a No. 1 Vicryl at multiple locations. The capsule was finally closed with a No. 2 Stratafix, barbed suture. The tourniquet was then released and the arthrotomy appeared watertight without significant bleeding. The second dosing of 1g TXA was started. Deep tissues were then reapproximated with 0 Vicryl and 2-0 Vicryl. The skin was closed with a running 3-0 Monocryl in a subcuticular fashion. This was reinforced with skin glue. A Mepilex silver dressing was applied along with a [id number] MAIKOL wrap. A CryoCuff was applied. Marychuy was transferred to the hospital bed without difficulty an suffering no apparent complication. Marychuy has a good prognosis. Physical therapy will start today and without restrictions, weight-bearing as tolerated. Aspirin 81mg BID will be used for DVT prophylaxis.
--- NOTE | 2022-04-15 11:47 | W.ANESPOSTOP ---
Postoperative Evaluation Date, Time and Location Date Performed: 04/15/22 Time Performed: 11:40 Patient Location: PACU Vital Signs Most Recent Imported Vital Signs: Most Recent Vital Signs Temp Pulse Resp BP Pulse Ox 36.5 C 72 15 164/73 H 94 04/15/22 11:35 04/15/22 11:35 04/15/22 11:35 04/15/22 11:35 04/15/22 11:35 Pain Score Most Recent Pain Score: Most Recent Pain Score Pain Level 0 04/15/22 11:25 Assessment Mental Status: Awake (Alert & Oriented to Patient Baseline) Airway and Respiratory Function: Patent airway with normal (patient baseline) respiratory exam Cardiovascular Function: Hemodynamically Stable Hydration Status: Adequately Hydrated Nausea & Vomiting: No Nausea or Vomiting Pain: Pt. Denies Any Pain Peripheral Nerve Block: Regional nerve block not resolved at time of post operative discharge
--- NOTE | 2022-04-15 13:05 | PT.INIE ---
Date of service: 04/15/22 Time of Service: 13:05 PT Notes Visit Reasons: L TKR Physical Therapy Day Surgery Initial Evaluation Date: 04/15/2022 Referring Doctor: PURA Gardner PT Orders: PT CONSULT: S/P Ortho surgery Precautions: WBAT on the left LE with AD. Patient Profile/Admitting Diagnosis: Marychuy is a 76-year-old female with degenerative joint disease of the left knee and is status post left total PMHX: Surgical History?(Updated 03/20/22 @ 13:11 by Una Alexander) Cataract s/p cataract surgery Fusion of toes Left great toeHistory of appendectomy History of breast biopsy Bilateral for fibrocystic changes History of hysterectomy Social History/Home Situation: Lives with in a private home with 3 steps to enter with a rail on one side. Reports no pain in R LE. Has a flight of 13 steps to the bedroom, rail on one side and wall on another. Equipment Owned/DME: [facility] Subjective: Agreeable to consult. Denies headache, and dizziness throughout session. Objective: General Observation: Supine in bed. MAIKOL wraps to left LE. Cryocuff to left knee. Mental Status: Alert and oriented x 4 Pain: Denies ROM: Right Lower Extremity: Hip flexion WFL. Hip abduction WFL. Knee flexion WFL. Ankle dorsiflexion WFL. Ankle plantarflexion WFL. Left Lower Extremity: Hip flexion WFL. Hip abduction WFL. Knee flexion 10 degrees to 90 degrees. Knee extension -10 degrees. Ankle dorsiflexion WFL. Ankle plantarflexion WFL. Strength: Right Lower Extremity: Hip flexors 5/5. Hip abductors 5/5. Knee flexors 5/5. Knee extensors 5/5. Ankle dorsiflexors 5/5. Ankle plantarflexors 5/5. Left Lower Extremity:Hip flexors 4/5. Hip abductors 4/5. Knee flexors 3-/5. Knee extensors 3-/5. Ankle dorsiflexors 5/5. Ankle plantarflexors 5/5. Sensation: Denies numbness and tingling in B LE. Intact as to pain and light pressure in BLE. Bed Mobility/Transfers: Supine to sit standby assist Sit to stand contact-guard assist Stand to sit standby assist Bed to chair standby assist THERA EX: Quads sets x 5 Supine heel slides x 5 Supine SLR x 5 Ankle pumps x 5 LAQ x 5 Seated marches x 5 Gait: 150 feet of level surface ambulation using front-wheeled walker with step to gait pattern. Mild buckling in L knee noted x 3 but no LOB requiring cueing from patient to avoid taking too far a step and esnuring that she pushes on walker handle to support L knee as the R knee advances. Reports no instability on the left knee throughout. Stairs: Held onto rail with ne hand and onto SPC with the other for support to manage 6 x 4-inch steps and 4 x 6-inch steps using step to gait pattern with no mild buckling noted in left knee during descent. Contact-guard assist provided. Balance: Static Sitting: Normal Dynamic Sitting: Normal Static Standing: Fair Dynamic Standing: Fair Special Tests: Mobility Limitations Standardized Measure [facility] AM-PAC 6 clicks Basic Mobility Inpatient Short Form: Raw Score: 22 CMS Score: 21% deficit Informed Consent/Education: Patient was instructed in purpose of PT consult. Packet containing L TKA exercise protocol has been given to patient. Education and training on initial set of exercises that can be done at home have been completed with patient and . Assessment: Firing in L quads impaired with mild buckling noted during level surface ambulation but patient us able to safely manage with cueing to ensure pressure in B walker handles before R knee is advanced to ensure adequate support. Patient presents with clinical signs and symptoms consistent with current/admitting diagnoses that have resulted to mobility limitations, gait instability, generalized weakness, and impairment of motor control as demonstrated by the following impairment level findings: 1. Decreased strength to left knee major muscle groups 2. Impaired standing balance 3. Limitation of joint range of motion in left knee Impairments are contributing to the following functional limitations: 1. Inability to safely ambulate without assistive device 2. Increase completion time for mobility ADL performance 3. Increased fall risk Patient is assessed as a 17279 moderate complexity based on the following: History: 76-year-old female with impairment level findings, functional limitations, and past medical history as indicated above Examination: Demonstrable impairment in strength, balance, and mobility level with underlying impairments and functional limitations as documented above Presentation: Evolving Decision Makin moderate complexity Goals: N/A. PT evaluation and 1-2 treatment sessions only for functional mobility training using recommended AD and for HEP instruction. Plan of Care/Treatment Plan: N/A. PT evaluation and 1-2 treatment session only for functional mobility training using recommended AD and for HEP instruction. DISCHARGE RECOMMENDATIONS: Home when medically cleared by orthopedic surgeon. Recommend outpatient PT services in order to optimize functional mobility outcomes and facilitate return to independent community ambulation without an assistive device. TREATMENT CODE/TIME: 9716 2 x 20 minutes, 9753 0 x 18 minutes beginning at 13:05 PM. Thank you for the opportunity to participate in the care of this patient. Thank you for the opportunity to participate in the care of this patient. Megan Hurtado PT, DPT, CLT [facility] [place], [place]
== END 2022-04-15 14:20 | disposition home or self-care (01) ==
PROVIDERS: PCP Internal Medicine; Visit Provider Student in an Organized Health Care Education/Training Program
PROC: (CPT 27447; principal; 2022-04-15 09:00)
DX: M17.12 Unilateral primary osteoarthritis, left knee (principal); I10 Essential (primary) hypertension; G47.33 Obstructive sleep apnea (adult) (pediatric)
CPT/HCPCS: 27447; C1776; 76942; 97162; 97530; J0690; J1100; J2250; J2405

== ENCOUNTER 2022-04-28 11:38 | Outpatient (CLI) | payer MEDICARE, OTHER, SELFPAY ==
--- NOTE | 2022-04-28 10:45 | DI.RAD_ITS ---
Exam(s) XR KNEE LT 1V XR STANDING ALIGNMENT EXAM: XR STANDING ALIGNMENT and XR knee LT 1 V CLINICAL HISTORY: 1st post op L TKA. TECHNIQUE: 2D digital imaging was performed. Five images were obtained. COMPARISON: CR ORTHO KNEE KWADWO 4+VIEWS from 06/24/2021 FINDINGS: BONES: Degenerative changes are seen in the left hip with joint space narrowing and periarticular spu rring. Since the prior examination the patient has undergone a left total knee replacement. The ort hopedic hardware appears in good position. There again seen marked degenerative changes in the right knee with joint space narrowing and periarticular spurring. Chondrocalcinosis is again noted. The ankles are well maintained.The right lower extremity is longer bile most 2 cm. SOFT TISSUE: Normal. IMPRESSION: 1. Status post left TKA. 2. Osteoarthritis of the right knee. DATA REPOSITORY: RADIATION DOSE DELIVERED:
== END 2022-04-28 11:39 | disposition home or self-care (01) ==
LOC: DIORS 11:39
PROVIDERS: PCP Internal Medicine; Referring Provider Internal Medicine; Visit Provider Student in an Organized Health Care Education/Training Program
DX: Z96.652 Presence of left artificial knee joint (principal); Z47.1 Aftercare following joint replacement surgery
CPT/HCPCS: 73560; 77073

== ENCOUNTER → 2022-05-29 10:36 | Outpatient (BNVA) | payer MEDICARE, OTHER, SELFPAY | PROVIDERS: PCP Internal Medicine; Referring Provider Internal Medicine; Visit Provider Student in an Organized Health Care Education/Training Program | DX: Z47.1 Aftercare following joint replacement surgery (principal); Z96.652 Presence of left artificial knee joint ==

== ENCOUNTER → 2022-07-03 10:05 | Outpatient (BNVA) | payer MEDICARE, OTHER, SELFPAY | PROVIDERS: PCP Internal Medicine; Referring Provider Internal Medicine; Visit Provider Student in an Organized Health Care Education/Training Program | DX: Z47.1 Aftercare following joint replacement surgery (principal); Z96.652 Presence of left artificial knee joint ==

== ENCOUNTER 2022-09-25 14:40 | Outpatient (CLI) | payer MEDICARE, OTHER, SELFPAY ==
--- NOTE | 2022-09-25 14:00 | DI.RAD_ITS ---
Exam(s) XR ANKLE LT COMPLETE EXAM: XR ANKLE LT COMPLETE CLINICAL HISTORY: F/U FRACTURE OF LEFT DISTAL FIB TECHNIQUE: 2D digital imaging was performed. Three views. COMPARISON: CR XR ANKLE COMPLETE MIN 3V LT from 09/07/2022 FINDINGS: BONES: Nondisplaced fracture of the distal fibula, unchanged in alignment. No bony destructive lesio n is seen. Prominent plantar calcaneal spur. Calcification seen along the Achilles tendon and plan tar fascia. JOINTS:The ankle mortise is normally aligned. Mild degenerative changes. SOFT TISSUE: Diffuse soft tissue edema. IMPRESSION: Stable alignment of distal fibular fracture. DATA REPOSITORY: RADIATION DOSE DELIVERED:
== END 2022-09-25 14:41 | disposition home or self-care (01) ==
LOC: DIORS 14:40
PROVIDERS: PCP Internal Medicine; Referring Provider Internal Medicine; Visit Provider Physician Assistant
DX: S82.62XD Displaced fracture of lateral malleolus of left fibula, subsequent encounter for closed fracture with routine healing; X58.XXXD Exposure to other specified factors, subsequent encounter
CPT/HCPCS: 99213; 73610

== ENCOUNTER 2022-10-31 10:04 | Outpatient (CLI) | payer MEDICARE, OTHER, SELFPAY ==
--- NOTE | 2022-10-31 11:28 | DI.RAD_ITS ---
Exam(s) XR ANKLE LT COMPLETE EXAM: XR ANKLE LT COMPLETE CLINICAL HISTORY: F/U L ANKLE FX TECHNIQUE: 2D digital imaging was performed. Three views. COMPARISON: CR XR ANKLE LT COMPLETE from 09/25/2022 FINDINGS: BONES: No change in alignment of the nondisplaced fracture of the distal fibula. No bony destructive lesion is seen. No talar dome defect. Prominent plantar calcaneal spur. JOINTS:The ankle mortise is normally aligned. No significant tibiotalar joint space narrowing. SOFT TISSUE: Swelling remains present. IMPRESSION: Stable appearance of distal fibular fracture. DATA REPOSITORY: RADIATION DOSE DELIVERED:
== END 2022-10-31 10:05 | disposition home or self-care (01) ==
LOC: DIORS 10:04
PROVIDERS: PCP Internal Medicine; Referring Provider Internal Medicine; Visit Provider Student in an Organized Health Care Education/Training Program
DX: S82.62XD Displaced fracture of lateral malleolus of left fibula, subsequent encounter for closed fracture with routine healing; W19.XXXD Unspecified fall, subsequent encounter
CPT/HCPCS: 99213; 73610

== ENCOUNTER 2023-04-24 10:45 | Outpatient (CLI) | payer MEDICARE, OTHER, SELFPAY ==
--- NOTE | 2023-04-24 09:30 | DI.RAD_ITS ---
Exam(s) XR KNEE LT 2V AP,LAT EXAM: XR KNEE LT 2V AP,LAT INDICATION: annual f/u L TKA. COMPARISON: CR XR KNEE LT 1V from 04/28/2022 CR XR STANDING ALIGNMENT from 04/28/2022 TECHNIQUE: 2D digital imaging was performed. Two views. FINDINGS: There has been no change in the left knee prosthesis given differences in projection. DATA REPOSITORY: RADIATION DOSE DELIVERED:
== END 2023-04-24 10:46 | disposition home or self-care (01) ==
LOC: DIORS 10:45
PROVIDERS: PCP Internal Medicine; Referring Provider Internal Medicine; Visit Provider Physician Assistant
DX: Z47.1 Aftercare following joint replacement surgery (principal); Z96.652 Presence of left artificial knee joint
CPT/HCPCS: 99213; 73560

== ENCOUNTER 2024-07-11 14:52 | Outpatient (CLI) | payer MEDICARE, OTHER, SELFPAY ==
--- NOTE | 2024-07-11 14:15 | DI.RAD_ITS ---
Exam(s) XR KNEE LT 2V AP,LAT EXAM: XR KNEE LT 2V AP,LAT INDICATION: ANNUAL F/U L TKA. COMPARISON: CR XR KNEE LT 1V from 04/28/2022 CR XR STANDING ALIGNMENT from 04/28/2022 CR XR ANKLE COMPLETE MIN 3V LT from 09/07/2022 CR XR KNEE LT 2V AP,LAT from 04/24/2023 TECHNIQUE: 2D digital imaging was performed. Two views. FINDINGS: There is stable alignment of the left total knee prosthesis. Enthesophyte is again noted at the quad riceps insertion on the patella. There is a posterior ovoid calcification the level of the posterior tibial which could represent a loose body. This is unchanged from prior. DATA REPOSITORY: RADIATION DOSE DELIVERED:
== END 2024-07-11 14:53 | disposition home or self-care (01) ==
LOC: DIORS 14:53
PROVIDERS: PCP Internal Medicine; Referring Provider Internal Medicine; Visit Provider Student in an Organized Health Care Education/Training Program
DX: Z96.652 Presence of left artificial knee joint (principal); M48.061 Spinal stenosis, lumbar region without neurogenic claudication
CPT/HCPCS: 99214; 73560

== ENCOUNTER 2024-08-10 02:04 | Outpatient (CLI) | payer MEDICARE, OTHER, SELFPAY ==
--- NOTE | 2024-08-10 08:00 | DI.MRI_ITS ---
Exam(s) MR LUMBAR SPINE WO EXAM: MR LUMBAR SPINE WO CLINICAL HISTORY: PAIN,LUMBAR RADICULOPATHY,M54.16. TECHNIQUE: Multiplanar multisequence MRI of the Lumbar spine was performed. COMPARISON: There are no plain films of the lumbar spine available at the time of this MRI interpret ation. FINDINGS: Five lumbar vertebrae are presumed. Conus medullaris is at normal level. There is no evidence of conus mass nor subjacent clumping of in trathecal nerve roots to suggest arachnoiditis. The distal thecal sac appears unremarkable.There is no evidence of Tarlov intrasacral cysts nor other significant findings within the sacral canal Bones:There are no fractures nor ominous osseous lesions in the lumbar vertebral bodies and visualize d sacrum. However, in the peripheral field of view of the sagittal images there is abnormal marrow e jamil signal in the anterior inferior aspect T11 vertebral body which appears to be related to a Schmo rl's node invagination and ipsilateral osteophytes at this level located anteriorly and right of frank ter. There is no significant disc herniation at this level. With respect to the individual levels... T12-L1: Normal disc height. Anterior osseous lipping. Mild posterior annular bulging without a arthur nant disc herniation or central canal stenosis and there is no significant foraminal stenosis on eith er side at this level. L1-2: This level exhibits relatively preserved disc height. There is anterior osseous lipping. Ther e is mild retrolisthesis of L1 upon L2 noted. No abnormal sub endplate marrow edema changes. There is mild posterior annular bulging. Central canal dimensions are lower normal. There is mild bilater al foraminal stenosis at this level. Mild facet arthropathy. L2-3: This level exhibits mild minimal disc space narrowing. Posteriorly there is broad relatively s ymmetrical annular bulging which extends into the floor of the exiting neural foramina bilaterally bu t without significant foraminal stenosis on either side. There is mild central canal stenosis due to the annular bulging and short AP dimensions of the pedicles. There is also significant bilateral fa cet arthrosis at this level. L3-4: This level exhibits normal disc height. There is mild anterolisthesis L3 upon L4, approximatel y 2 mm, this related to facet arthrosis. There is also broad annular bulging with moderate-severe ce ntral spinal canal stenosis. No distinct focal disc herniation.There is no obvious foraminal stenosi s at this level.Advanced facet arthrosis bilaterally. L4-5: This level exhibits chronic disc space narrowing and Modic type 2 sub endplate fatty marrow cecelia nges on both sides of the disc space. Posteriorly there is minimal degenerative anterolisthesis L4 u carlos alberto L5 related to facet arthrosis. There is mild-moderate central canal stenosis. There is also mil d posterior epidural lipomatosis at this level which also slightly compresses the posterior aspect of the thecal sac at this level. There is advanced bilateral facet arthrosis this level. There is mil d-moderate vertical foraminal stenosis on the right side at this level and mild foraminal stenosis on the left side at this level. L5-S1: This level exhibits preserved disc height and signal with no evidence of disc herniation nor c entral canal stenosis nor foraminal stenosis nor listhesis. The normal appearing disc at this level appears to be related to stabilize a herrera of this segment by partial right-sided sacralization of the L5 segment. Soft tissues: paraspinal soft tissues appear unremarkable. IMPRESSION: 1. Multilevel findings as described individually above. 2. There is moderate-severe central spinal canal stenosis at L3-4 level and mild-moderate central can al stenosis at L4-5 level. 3. Mild bilateral foraminal stenosis at L1-2 level; mild-moderate foraminal stenosis on the right margo e at L4-5 level; multiple from no stenosis on the left side at L4-5 level. 4. There are advanced degenerative changes in the facet joints bilaterally at L 3-4 and L4-5 levels. Also facet arthrosis evident at L2-3 level. Other findings as above. DATA REPOSITORY:
== END 2024-08-10 02:24 ==
LOC: DI 02:04
PROVIDERS: PCP Internal Medicine; Visit Provider Student in an Organized Health Care Education/Training Program
DX: M48.061 Spinal stenosis, lumbar region without neurogenic claudication
CPT/HCPCS: 72148